=== PATIENT | male | born 1965 | race Caucasian/White ===

== ENCOUNTER → 2016-10-20 | Outpatient (CLI) | payer OTHER ==
[2016-10-20 12:01] LABS: Basophils # (A) 0.1 k/uL (0-0.2); Basophils % (A) 1 %; CH 31.9; CHCM 34.4; Eosinophils # (A) 0.2 k/uL (0-0.7); Eosinophils % (A) 3 %; HCT 46.1 % (39.0-53.0); HDW 2.43; HGB 14.8 gm/dL (13.0-17.5); Luc # (Auto) 0.21; Luc % (Auto) 3; Lymphocytes # (A) 1.9 k/uL (1.0-4.8); Lymphocytes % (A) 26 %; MCHC 32.1 g/dL (31.0-37.0); MCV 93.4 fL (80.0-100.0); Mean Platelet Volume 9.7; Monocytes # (A) 0.5 k/uL (0-1.0); Monocytes % (A) 6 %; Neutrophils # (A) 4.7 k/uL (1.3-7.7); Neutrophils % (A) 63 %; RBC 4.94 m/uL (4.30-5.90); RDW 12.7 % (11.5-15.5); WBC 7.6 k/uL (3.8-10.6); WBC (Perox) 7.87
[2016-10-20 12:36] LABS: ALT 67 U/L (21-72); AST 31 U/L (17-59); Alkaline Phosphatase 66 U/L (38-126); Anion Gap 11 mmol/L; Blood Urea Nitrogen 18 mg/dL (9-20); Calcium 9.5 mg/dL (8.4-10.2); Carbon Dioxide 26 mmol/L (22-30); Chloride 104 mmol/L (98-107); Cholesterol 214 mg/dL (<200); Glucose 128 mg/dL (74-99); HDL Cholesterol 45 mg/dL (40-60); Non-African American GFR(MDRD) >60 (>60 ml/min/1.73 sqM); Potassium 4.5 mmol/L (3.5-5.1); Sodium 141 mmol/L (137-145); Total Bilirubin 0.5 mg/dL (0.2-1.3); Total Protein 7.3 g/dL (6.3-8.2); Triglycerides 280 mg/dL (<150)
[2016-10-20 13:05] LABS: Prostate Specific Antigen 0.45 ng/mL (0.00-4.00)
== END | disposition home or self-care (01) ==
LOC: LABWHC1 10:21
PROVIDERS: ATTEND Family Medicine
DX: E78.2 Mixed hyperlipidemia (principal); E11.65 Type 2 diabetes mellitus with hyperglycemia; R35.0 Frequency of micturition; R53.83 Other fatigue
CPT/HCPCS: 36415; 80053; 80061; 84153; 85025

== ENCOUNTER → 2016-11-15 | Outpatient (CLI) | payer OTHER ==
--- NOTE | 2016-11-15 16:07 | XR ---
Lumbar spine HISTORY: Low back pain 3 views of the lumbar spine No comparisons Lumbar vertebral bodies show decreased bone mineralization. Alignment is maintained. There is multile tony spondylosis, vertebral body height is normal. Loss of disc height at L4-5, L5-S1. Sclerosis prese nt in the posterior elements. Vascular calcifications present within the abdominal aorta. Difficult t o exclude renal calcifications. Sclerosis in the posterior elements. IMPRESSION: Degenerative disc disease and facet arthropathy. Difficult to exclude nephrolithiasis.
== END | disposition home or self-care (01) ==
LOC: RADXRMAIN 15:28
PROVIDERS: ATTEND Emergency Medicine
DX: S39.012A Strain of muscle, fascia and tendon of lower back, initial encounter (principal); M51.36 Other intervertebral disc degeneration, lumbar region; M46.86 Other specified inflammatory spondylopathies, lumbar region
CPT/HCPCS: 72100

== ENCOUNTER → 2016-11-27 | Outpatient (CLI) | payer OTHER ==
--- NOTE | 2016-11-27 19:04 | PN ---
This 50-year-old male patient who was diagnosed having obstructive sleep apnea and patient is coming in for a compliancy check. The patient was found to have moderate to severe disease with an AHI of 18 worse during REM. Based on that, the patient was given CPAP at a pressure of 8 cm of water. On today's follow-up, the patient is feeling greater. He reports marked improvement in his sleep quality and is able to sleep without any major difficulties. He is waking up much more refreshed and alert during the day. His snoring is completely gone as he is using his CPAP at night. He is waking up refreshed. No major hypersomnia or sleepiness during the day. His average CPAP use 6 hours and 23 minutes. His CPAP use for more than 4 hours is 100%. He has leak factor is only at 0.2 L/min. His AHI while on treatment is down to 2.8 and the patient has no specific complaints. He has lost also 4 pounds. No other significant issues otherwise for now. His current vitals: BP is 150/88, pulse 101, respirations 16, temperature is 98.3, saturation is 95% on room air. [place] score 3. Weight is 232. GENERAL APPEARANCE: Calm, comfortable. HEENT: Short neck, crowding posterior pharynx. There is no goiter, neck mass. LUNGS: Clear to auscultation. HEART: Sounds are regular rate and rhythm. Normal S1, S2. ABDOMEN: Soft, nontender. No organomegaly. EXTREMITIES: No edema. No cyanosis, or clubbing. IMPRESSION: 1. Symptomatic obstructive sleep apnea, moderate in severity, AHI of 18, worse during REM, currently on CPAP pressure of 18 with excellent clinical response and compliance. 2. Diabetes mellitus. 3. Benign prostatic hypertrophy. 4. Hyperlipidemia. 5. Obesity. PLAN: 1. Encourage weight loss. 2. Continue CPAP therapy at same level of pressure. 3. Continue using a Simplus full face mask. 4. See me back in follow-up in a year or earlier if needed.
== END | disposition home or self-care (01) ==
LOC: SLEEP 15:24
PROVIDERS: ATTEND Internal Medicine Critical Care Medicine
DX: G47.33 Obstructive sleep apnea (adult) (pediatric) (principal); E66.9 Obesity, unspecified; Z99.89 Dependence on other enabling machines and devices

== ENCOUNTER → 2016-12-25 | Outpatient (CLI) | payer OTHER ==
--- NOTE | 2016-12-26 08:29 | MR ---
EXAMINATION TYPE: MR lumbar spine wo con DATE OF EXAM: 12/25/2016 9:26 PM COMPARISON: Plain film second of November 2016 HISTORY: low back pain x2 months TECHNIQUE: Multiplanar, multisequence images of the lumbar spine were acquired. L1-L2: Normal disc appearance without desiccation. No herniation, protrusion or disc bulging. No ca nal stenosis is present. Foramina are patent bilaterally. L2-L3: Normal disc appearance without desiccation. No herniation, protrusion or disc bulging. No ca nal stenosis is present. Foramina are patent bilaterally. L3-L4: Normal disc appearance without desiccation. No herniation, protrusion or disc bulging. No ca nal stenosis is present. Foramina are patent bilaterally. L4-L5: Facet arthropathy with hypertrophy of the ligamentum flavum causes some lateral recess encroac hment. No significant central stenosis or foraminal encroachment. Broad-based posterior disc bulge ca uses only slight anterior mass effect on the thecal sac. L5-S1: Loss of disc signal is compatible with disc desiccation. Posterior broad-based disc bulge caus es mild anterior mass effect on the thecal sac. Scoliotic curvature combines with circumferential ext ension of endplate disc complex to cause some right-sided foraminal encroachment greater than left. N o significant central stenosis. There is some facet arthropathy encroaching on the lateral recesses. Lumbar segments are intact. No paraspinal masses are identified. Conus medullaris has a normal appe arance. There is a scoliosis centered at the lower lumbar spine. IMPRESSION: Scoliosis, degenerative disc disease, facet arthropathy and foraminal encroachment as described.
== END ==
LOC: RADMRIMAIN 20:35
PROVIDERS: ATTEND Emergency Medicine
DX: S39.012D Strain of muscle, fascia and tendon of lower back, subsequent encounter (principal); M99.73 Connective tissue and disc stenosis of intervertebral foramina of lumbar region; M51.36 Other intervertebral disc degeneration, lumbar region; M46.86 Other specified inflammatory spondylopathies, lumbar region; M41.86 Other forms of scoliosis, lumbar region
CPT/HCPCS: 72148

== ENCOUNTER → 2017-02-25 | Outpatient (CLI) | payer OTHER ==
[2017-02-25 14:13] VITALS: BP 132/73; PULSE 102; RESP 16; TEMP 98.5
--- NOTE | 2017-02-25 14:35 | P.CONS ---
History of Present Illness - Reason for Consult Consult date: 02/25/17 - History of Present Illness This is the initial consultation visit for this 51 years old male, was complaining of severe low back pain October 2016, and intensity of the pain increased over a few weeks, he had physical therapy for a 2 weeks, and his pain improved significantly, but he continued to have severe low back pain when he walks, the pain is constant and increases with walking or any activity, he denies any motor or sensory deficit, he denies any fever or night sweats and no change in the bowel movement or urination, the pain radiated to the posterior aspect of his right leg, improved with leaning forward and increases with rotation of the torso, and hyperextension Past Medical History Past Medical History: Diabetes Mellitus, GERD/Reflux, Hyperlipidemia History of Any Multi-Drug Resistant Organisms: None Reported Past Surgical History: Heart Catheterization Past Anesthesia/Blood Transfusion Reactions: Family History of Problems w/ Anesthesia Additional Past Anesthesia/Blood Transfusion Reaction / Comm: mom had some problems coming out of anes. Past Psychological History: No Psychological Hx Reported Smoking Status: Current every day smoker Past Alcohol Use History: Occasional Past Drug Use History: None Reported - Past Family History Mother Family Medical History: Coronary Artery Disease (CAD) Father Family Medical History: Coronary Artery Disease (CAD) Medications and Allergies Home Medications Medication Instructions Recorded Confirmed Type Aspirin 325 mg PO DAILY 06/17/14 02/25/17 History Fenofibrate 160 mg PO DAILY 06/17/14 02/25/17 History Pioglitazone [Actos] 30 mg PO DAILY 06/17/14 02/25/17 History Multivitamin [Men's Multi-Vitamin] 1 tab PO DAILY 06/18/14 02/25/17 History Omeprazole [Omeprazole] 20 mg PO BID 06/18/14 02/25/17 History Atorvastatin [Lipitor] 40 mg PO DAILY 02/25/17 02/25/17 History Tamsulosin [Flomax] 1 tab PO DAILY 02/25/17 02/25/17 History sitaGLIPtin PHOS/metFORMIN HCL 1 tab PO BID 02/25/17 02/25/17 History [Janumet 50-1,000 mg Tablet] Allergies Allergy/AdvReac Type Severity Reaction Status Date / Time No Known Allergies Allergy Verified 02/25/17 13:57 Physical Exam Vitals: Vital Signs Temp Pulse Resp BP Pulse Ox 02/25/17 14:05 98.5 F 102 H 16 132/73 97 Intake and Output 02/24/17 02/25/17 02/25/17 22:59 06:59 14:59 Other: Weight 102.058 kg Patient Weight 02/26/17 06:59 Weight 102.058 kg Social history : not smoker , NO ETOH , NO Illegal drugs use . Review of Systems : 1- Constitutional : no chills , no fever , no night sweats , 2- Ears : no ear discharge , no change in hearing 3-Nose, Mouth ,Throat ; no bleeding gums, no sore throat , no epistaxis , 4-Cardiovascular : Denies chest pain, , no orthopnea , no palpitation 5-Respiratory : Denies cough , no dyspnea , no hemoptysis 6-Gastrointestinal :, no change in bowel habits , no coffee- ground emesis . 7-Genitourinary : No hematuria , no discharge , no incontinence, 8-Musculoskeletal : No gait dysfunction , report low back pain , 9- Neurological : no ataxia , no tremor , no sezure , 10-Psychatric , no suicidal ideation no hallucination 11- Endocrine : no cold intolerence , no polyuria , no polydypsia , 12-Hematologic : no easy bleeding , no easy brusing , 13-Allergic / immunology : no angioedema , no wheezing ,no allergic rhinitis 14-Integumentary : no brttle nails , no change hair / nails , no foot/leg ulcers . Physical Examinations : 1-Constitutional : Cooperative , not in acute distress . 2-HEENT : nech ; supple , no Lymphadenopathy , no Thyromegaly , :eyes , no icterus, no photophobia . ENT : , normal oropharynx , no Thrush 3- Respiratory : Chest clear to auscultations Bilaterally , no wheezing . 4- Cardiovascular : regular rate and rhythem , S1 , S2 , no S3 , no S4. 5- Gastrointestinal: abdomen soft no tenderness , no organomegally . 6- Genitourinary : Defferred . 7-Integumentary : No cellulitis , no ulcers , normal skin turgor , no cyanotic . 8- neurologic : Cranial nerve II to XII intact , no focal neurological deffecit 9-psychatric : alert , oriented X 3 , appropriate affect , intact judgment and insight . 10-Lymphatic : no Lymphadenopathy. 11- musculoskeltal: normal gait Lumber spine moter stegnth lower extremities ,thigh and legs 5/5 Right side , 5/5 Left side deep tendon reflexes : normal Knee Jerk , normal ankle Jerk positive lumber facet Loading Test Range of motion of the lumbar spine 60 , hyperextension 10 strait leg raising test negative bilaterally Fabere test negative bilaterally mild tenderness over the Sacroiliac joint on the R and L sides Results Comments: MRI of the lumbar spine= multilevel lumbar degenerative disc disease and lumbar facet arthropathy at L4 5 and L5-S1 Assessment and Plan Plan: Assessment and plan= -chronic low back pain secondary to lumbar degenerative disc disease , lumbar spondylosis with lumbar facet arthropathy without myelopathathy Patient can benefit from Motrin 800 mg every 8 hours when necessary for pain, and Neurontin 100 mg every 8 hours, Will schedule patient to have diagnostic medial branch block lumbar area at L3-4/L4 5/L5-S1. b If he had a good result ,the we will do radiofrequency ablation of the medial branch Time with Patient: Greater than 30
== END ==
LOC: PNWHC3 13:08
PROVIDERS: ATTEND Specialist
DX: M51.36 Other intervertebral disc degeneration, lumbar region (principal); M47.816 Spondylosis without myelopathy or radiculopathy, lumbar region; M46.86 Other specified inflammatory spondylopathies, lumbar region; E11.9 Type 2 diabetes mellitus without complications; K21.9 Gastro-esophageal reflux disease without esophagitis; F17.200 Nicotine dependence, unspecified, uncomplicated; E78.5 Hyperlipidemia, unspecified; Z79.82 Long term (current) use of aspirin; Z79.84 Long term (current) use of oral hypoglycemic drugs; Z79.899 Other long term (current) drug therapy
CPT/HCPCS: 99211

== ENCOUNTER → 2018-08-05 | Outpatient (CLI) | payer OTHER ==
--- NOTE | 2018-08-05 19:37 | PN ---
PROGRESS NOTE Santos is 52. He is coming in for a compliancy check regarding his DAX treatment. The patient was diagnosed having DAX with an AHI of 18, worse during REM sleep. Since his last evaluation last year the patient has lost weight. He used to weight 232 and currently he is down to 226. He is currently on CPAP pressure of 8 cm of water. He is using a Simplus full-face mask, medium size. He is still benefitting from the treatment. He is waking up alert and refreshed during the day. No new-onset medical problems or comorbidities. No chest pain. No angina. No palpitation. No heartburn. No cardiac arrhythmias. Based on the compliance data, the patient has been utilizing his CPAP throughout the night without any interruption. His CPAP use for more than 4 hours is above 90%. Average CPAP is around 8.4 hours per night. Leak factor is 29 L/minute. AHI is down to 1.1 while on treatment. His treatment continues to be successful. REVIEW OF SYSTEMS: Twelve-point review of systems was done. It is positive for weight loss. No headaches. No nausea. No vomiting. No aerophagia. No abdominal distention. No chest pain. No restlessness in the lower extremities. Diabetes is under good control. No significant symptoms of nocturia at this point in time. No chronic pain. No psychiatric disorder. BP is 153/71, pulse 96, respirations 16, temperature 98.0, saturation 94% on room air. Weight 226. Height is 5 feet 6 inches. GENERAL APPEARANCE: Calm, comfortable. Head is atraumatic, normocephalic. NECK: Supple. There is no JVD. No goiter or neck masses. Crowding of posterior pharynx. Mallampati class IV. LUNGS: Clear to auscultation. HEART: Heart sounds are regular rate and rhythm. Normal S1, S2. No S3. No murmurs. ABDOMEN: Soft, nontender. No organomegaly. EXTREMITIES: No edema. No cyanosis or clubbing. IMPRESSION: 1. Symptomatic obstructive sleep apnea with apnea/hypopnea index of 19. Continues to be on CPAP pressure of 8 cm of water with successful treatment. 2. Obesity with a body mass index of 36.4, with interval 6-pound weight loss. 3. Hypersomnia, improved. 4. Diabetes. 5. Benign prostatic hypertrophy. 6. Hyperlipidemia. 7. History of periodic limb movements. PLAN: 1. Continue CPAP therapy at the same level of pressure of 8 cm of water. 2. Renew the patient's CPAP supplies. 3. Encourage further weight loss. 4. See me back in a year's time, earlier if needed. BOO / ANGI: [id number] /
== END ==
LOC: SLEEP 15:34
PROVIDERS: ATTEND Internal Medicine Critical Care Medicine
DX: G47.33 Obstructive sleep apnea (adult) (pediatric) (principal); E66.9 Obesity, unspecified; E11.9 Type 2 diabetes mellitus without complications; N40.0 Benign prostatic hyperplasia without lower urinary tract symptoms; E78.5 Hyperlipidemia, unspecified; Z99.89 Dependence on other enabling machines and devices; Z68.36 Body mass index [BMI] 36.0-36.9, adult

== ENCOUNTER → 2018-12-29 | Outpatient (CLI) | payer OTHER ==
[2018-12-29 12:28] LABS: Basophils % (A) 0 %; Eosinophils # (A) 0.2 k/uL (0-0.7); Eosinophils % (A) 2 %; HCT 43.9 % (39.0-53.0); HGB 14.7 gm/dL (13.0-17.5); Lymphocytes # (A) 2.1 k/uL (1.0-4.8); Lymphocytes % (A) 29 %; MCH 30.9 pg (25.0-35.0); MCHC 33.5 g/dL (31.0-37.0); MCV 92.2 fL (80.0-100.0); Mean Platelet Volume 9.8; Monocytes # (A) 0.5 k/uL (0-1.0); Monocytes % (A) 7 %; Neutrophils # (A) 4.3 k/uL (1.3-7.7); Neutrophils % (A) 59 %; Platelet Count 190 k/uL (150-450); RBC 4.76 m/uL (4.30-5.90); RDW 13.9 % (11.5-15.5); WBC 7.2 k/uL (3.8-10.6)
[2018-12-29 12:42] LABS: ALT 56 U/L (21-72); AST 34 U/L (17-59); Albumin 4.5 g/dL (3.5-5.0); Alkaline Phosphatase 62 U/L (38-126); Anion Gap 6 mmol/L; Blood Urea Nitrogen 22 mg/dL (9-20); Calcium 10.5 mg/dL (8.4-10.2); Carbon Dioxide 28 mmol/L (22-30); Chloride 103 mmol/L (98-107); Glucose 157 mg/dL (74-99); Potassium 4.5 mmol/L (3.5-5.1); Sodium 137 mmol/L (137-145); Total Bilirubin 0.4 mg/dL (0.2-1.3)
--- NOTE | 2018-12-29 16:06 | US ---
EXAMINATION TYPE: US scrotum with doppler. TECHNIQUE: Grayscale and color Doppler Duplex imaging performed of the scrotum. DATE OF EXAM: 12/29/2018 COMPARISON: NONE CLINICAL HISTORY: 53-year-old male N50.811 RT TESTICULAR PAIN. Pain right testicle for 1 day FINDINGS: EXAM MEASUREMENTS: TESTICLES: Right Testicle: 4.7 x 2.4 x 4.2 cm (24.7 mL) Left Testicle: 3.8 x 2.7 x 3.7 cm (19.8 mL) Doppler performed to assess for testicular vascularity; good bilateral color flow and waveforms are s een. There is no evidence of testicular torsion. EPIDIDYMIS HEAD: Right Epididymis: 1.8 cm with multiple cysts measuring up to 1 cm. Left Epididymis: 1.5 cm with multiple cysts measuring up to 1.2 cm. No varicocele is identified. Presence of hydroceles: yes, small to moderate on the right is small and the left. IMPRESSION: 1. No sonographic evidence for testicular torsion or epididymoorchitis. 2. Bilateral epididymal cysts measuring up to 1.2 cm. 3. Small to moderate right and small left hydroceles.
== END ==
LOC: RADUSWWP 11:09
PROVIDERS: ATTEND Family Medicine
DX: N50.3 Cyst of epididymis (principal); N43.3 Hydrocele, unspecified; N50.811 Right testicular pain; R19.4 Change in bowel habit
CPT/HCPCS: 76870; 80053; 84153; 85025; 93975

== ENCOUNTER 2019-08-27 19:45 | Observation (INO) | payer OTHER ==
[2019-08-27] MEDS ORDERED: ACETAMINOPHEN TAB 500 MG TAB PO STA (20:11)
[2019-08-27] MEDS ORDERED: IBUPROFEN 600 MG TAB PO STA (20:11)
[2019-08-27] MEDS ORDERED: ASPIRIN 81 MG PO STA (20:13)
[2019-08-27] MEDS ORDERED: NITROGLYCERIN OINT 1 INCH/GM PACKET TOPICAL STA (20:14)
--- NOTE | 2019-08-27 20:19 | ED ---
General Adult HPI - General Source: patient, RN notes reviewed, old records reviewed Mode of arrival: ambulatory <Michael Marcial - Last Filed: 08/27/19 21:04> <Margarito Petit - Last Filed: 08/27/19 22:44> - General Chief complaint: Chest Pain Stated complaint: chest pain Time Seen by Provider: 08/27/19 19:50 - History of Present Illness Initial comments: This is a 53-year-old male who presents emergency Department complaining that last night he had chest pain for most of the night he was sweaty and mildly short of breath per patient denied any radiation of the pain. Patient states he went to work today because the pain had subsided. When he came home he took a nap when he woke up he was having severe chest pain again. Patient states again there was no radiation of the pain. Patient stated he was mildly short of breath but again sweaty. Patient denies any nausea vomiting. Patient denies any fever chills or cough. Patient denies any abdominal pain. Patient denies any rashes. Patient denies any dysuria hematuria urinary frequency. Patient states she did not get a flu shot this year. (Michael Marcial) - Related Data Home Medications Medication Instructions Recorded Confirmed Aspirin 325 mg PO DAILY 06/17/14 02/25/17 Fenofibrate 160 mg PO DAILY 06/17/14 02/25/17 Pioglitazone [Actos] 30 mg PO DAILY 06/17/14 02/25/17 Multivitamin [Men's Multi-Vitamin] 1 tab PO DAILY 06/18/14 02/25/17 Omeprazole 20 mg PO BID 06/18/14 02/25/17 Atorvastatin [Lipitor] 40 mg PO DAILY 02/25/17 02/25/17 Tamsulosin [Flomax] 1 tab PO DAILY 02/25/17 02/25/17 sitaGLIPtin PHOS/metFORMIN HCL 1 tab PO BID 02/25/17 02/25/17 [Janumet 50-1,000 mg Tablet] Allergies Allergy/AdvReac Type Severity Reaction Status Date / Time No Known Allergies Allergy Verified 08/27/19 19:52 Review of Systems ROS Other: All systems not noted in ROS Statement are negative. <Michael Marcial - Last Filed: 08/27/19 21:04> ROS Other: All systems not noted in ROS Statement are negative. <Margarito Petit - Last Filed: 08/27/19 22:44> ROS Statement: Those systems with pertinent positive or pertinent negative responses have been documented in the HPI. Past Medical History Past Medical History: Diabetes Mellitus, GERD/Reflux, Hyperlipidemia History of Any Multi-Drug Resistant Organisms: None Reported Past Surgical History: Heart Catheterization Past Anesthesia/Blood Transfusion Reactions: Family History of Problems w/ Anesthesia Additional Past Anesthesia/Blood Transfusion Reaction / Comment(s): mom had some problems coming out of anes. Past Psychological History: No Psychological Hx Reported Smoking Status: Former smoker Past Drug Use History: None Reported - Past Family History Mother Family Medical History: Coronary Artery Disease (CAD) Father Family Medical History: Coronary Artery Disease (CAD) <Michael Marcial - Last Filed: 08/27/19 21:04> General Exam <Michael Marcial - Last Filed: 08/27/19 21:04> - General Exam Comments Initial Comments: GENERAL: Patient is well-developed and well-nourished. Patient is nontoxic and well- hydrated and is in mild distress. I took the patient's temperature it was 101.7 ENT: Neck is soft and supple. No significant lymphadenopathy is noted. Oropharynx is clear. Moist mucous membranes. Neck has full range of motion without eliciting any pain. EYES: The sclera were anicteric and conjunctiva were pink and moist. Extraocular movements were intact and pupils were equal round and reactive to light. Eyelids were unremarkable. PULMONARY: Unlabored respirations. Good breath sounds bilaterally. No audible rales rhonchi or wheezing was noted. CARDIOVASCULAR: There is a regular rate and rhythm without any murmurs gallops or rubs. ABDOMEN: Soft and nontender with normal bowel sounds. SKIN: Skin is clear with no lesions or rashes and otherwise unremarkable. NEUROLOGIC: Patient is alert and oriented x3. Cranial nerves II through XII are grossly intact. Motor and sensory are also intact. Normal speech, volume and content. Symmetrical smile. MUSCULOSKELETAL: Normal extremities with adequate strength and full range of motion. LYMPHATICS: No significant lymphadenopathy is noted PSYCHIATRIC: Normal psychiatric evaluation. (Michael Marcial) Course Vital Signs 08/27/19 08/27/19 08/27/19 19:47 20:02 20:10 Temperature 99.6 F 101.7 F H Pulse Rate 119 H Pulse Rate [ 116 H [employer] ] Respiratory 17 Rate Blood Pressure 151/52 O2 Sat by Pulse 97 Oximetry 08/27/19 08/27/19 21:23 22:41 Temperature 100.6 F H 100 F H Pulse Rate 112 H 112 H Pulse Rate [ [employer] ] Respiratory 18 18 Rate Blood Pressure 127/70 128/82 O2 Sat by Pulse 95 97 Oximetry Medical Decision Making - Lab Data Result diagrams: 08/27/19 20:22 08/27/19 20:22 <Michael Marcial - Last Filed: 08/27/19 21:04> - Lab Data Result diagrams: 08/27/19 20:22 08/27/19 20:22 <Margarito Petit - Last Filed: 08/27/19 22:44> - Medical Decision Making EKG shows sinus tachycardia at 116 bpm NJ interval 146 dresses 88 QT interval 3:30 QTC is 458 per patient's EKG shows occasional PVCs but no ST segment elevation or depression. Dr. Galindo taking over the care of this patient at 9 PM (Michael Marcial) - Lab Data Lab Results 08/27/19 08/27/19 08/27/19 Range/Units 20:00 20:00 20:22 WBC 9.6 (3.8-10.6) k/uL RBC 4.27 L (4.30-5.90) m/uL Hgb 13.2 (13.0-17.5) gm/dL Hct 38.1 L (39.0-53.0) % MCV 89.3 (80.0-100.0) fL MCH 31.0 (25.0-35.0) pg MCHC 34.7 (31.0-37.0) g/dL RDW 12.9 (11.5-15.5) % Plt Count 182 (150-450) k/uL Neutrophils % 79 % Lymphocytes % 10 % Monocytes % 7 % Eosinophils % 1 % Basophils % 0 % Neutrophils # 7.6 (1.3-7.7) k/uL Lymphocytes # 0.9 L (1.0-4.8) k/uL Monocytes # 0.7 (0-1.0) k/uL Eosinophils # 0.1 (0-0.7) k/uL Basophils # 0.0 (0-0.2) k/uL PT (9.0-12.0) sec INR (<1.2) APTT (22.0-30.0) sec Sodium (137-145) mmol/L Potassium (3.5-5.1) mmol/L Chloride (98-107) mmol/L Carbon Dioxide (22-30) mmol/L Anion Gap mmol/L BUN (9-20) mg/dL Creatinine (0.66-1.25) mg/dL Est GFR (CKD-EPI)AfAm (>60 ml/min/1.73 sqM) Est GFR (CKD-EPI)NonAf (>60 ml/min/1.73 sqM) Glucose (74-99) mg/dL Plasma Lactic Acid Daniel (0.7-2.0) mmol/L Calcium (8.4-10.2) mg/dL Total Bilirubin (0.2-1.3) mg/dL AST (17-59) U/L ALT (4-49) U/L Alkaline Phosphatase (38-126) U/L Troponin I (0.000-0.034) ng/mL Total Protein (6.3-8.2) g/dL Albumin (3.5-5.0) g/dL Urine Color Light Yellow Urine Appearance Clear (Clear) Urine pH 6.0 (5.0-8.0) Ur Specific [place] 1.012 (1.001-1.035) Urine Protein 1+ H (Negative) Urine Glucose (UA) 4+ H (Negative) Urine Ketones Negative (Negative) Urine Blood Negative (Negative) Urine Nitrite Negative (Negative) Urine Bilirubin Negative (Negative) Urine Urobilinogen <2.0 (<2.0) mg/dL Ur Leukocyte Esterase Negative (Negative) Urine RBC <1 (0-5) /hpf Urine WBC <1 (0-5) /hpf Urine Bacteria Rare H (None) /hpf Influenza Type A RNA Not Detected (Not Detectd) Influenza Type B (PCR) Not Detected (Not Detectd) 08/27/19 08/27/19 08/27/19 Range/Units 20:22 20:22 20:22 WBC (3.8-10.6) k/uL RBC (4.30-5.90) m/uL Hgb (13.0-17.5) gm/dL Hct (39.0-53.0) % MCV (80.0-100.0) fL MCH (25.0-35.0) pg MCHC (31.0-37.0) g/dL RDW (11.5-15.5) % Plt Count (150-450) k/uL Neutrophils % % Lymphocytes % % Monocytes % % Eosinophils % % Basophils % % Neutrophils # (1.3-7.7) k/uL Lymphocytes # (1.0-4.8) k/uL Monocytes # (0-1.0) k/uL Eosinophils # (0-0.7) k/uL Basophils # (0-0.2) k/uL PT 9.7 (9.0-12.0) sec INR 0.9 (<1.2) APTT 25.2 (22.0-30.0) sec Sodium 133 L (137-145) mmol/L Potassium 3.9 (3.5-5.1) mmol/L Chloride 97 L (98-107) mmol/L Carbon Dioxide 24 (22-30) mmol/L Anion Gap 12 mmol/L BUN 13 (9-20) mg/dL Creatinine 0.91 (0.66-1.25) mg/dL Est GFR (CKD-EPI)AfAm >90 (>60 ml/min/1.73 sqM) Est GFR (CKD-EPI)NonAf >90 (>60 ml/min/1.73 sqM) Glucose 284 H (74-99) mg/dL Plasma Lactic Acid Daniel 1.2 (0.7-2.0) mmol/L Calcium 9.6 (8.4-10.2) mg/dL Total Bilirubin 0.6 (0.2-1.3) mg/dL AST 22 (17-59) U/L ALT 32 (4-49) U/L Alkaline Phosphatase 96 (38-126) U/L Troponin I (0.000-0.034) ng/mL Total Protein 7.1 (6.3-8.2) g/dL Albumin 4.2 (3.5-5.0) g/dL Urine Color Urine Appearance (Clear) Urine pH (5.0-8.0) Ur Specific [place] (1.001-1.035) Urine Protein (Negative) Urine Glucose (UA) (Negative) Urine Ketones (Negative) Urine Blood (Negative) Urine Nitrite (Negative) Urine Bilirubin (Negative) Urine Urobilinogen (<2.0) mg/dL Ur Leukocyte Esterase (Negative) Urine RBC (0-5) /hpf Urine WBC (0-5) /hpf Urine Bacteria (None) /hpf Influenza Type A RNA (Not Detectd) Influenza Type B (PCR) (Not Detectd) 08/27/19 Range/Units 20:22 WBC (3.8-10.6) k/uL RBC (4.30-5.90) m/uL Hgb (13.0-17.5) gm/dL Hct (39.0-53.0) % MCV (80.0-100.0) fL MCH (25.0-35.0) pg MCHC (31.0-37.0) g/dL RDW (11.5-15.5) % Plt Count (150-450) k/uL Neutrophils % % Lymphocytes % % Monocytes % % Eosinophils % % Basophils % % Neutrophils # (1.3-7.7) k/uL Lymphocytes # (1.0-4.8) k/uL Monocytes # (0-1.0) k/uL Eosinophils # (0-0.7) k/uL Basophils # (0-0.2) k/uL PT (9.0-12.0) sec INR (<1.2) APTT (22.0-30.0) sec Sodium (137-145) mmol/L Potassium (3.5-5.1) mmol/L Chloride (98-107) mmol/L Carbon Dioxide (22-30) mmol/L Anion Gap mmol/L BUN (9-20) mg/dL Creatinine (0.66-1.25) mg/dL Est GFR (CKD-EPI)AfAm (>60 ml/min/1.73 sqM) Est GFR (CKD-EPI)NonAf (>60 ml/min/1.73 sqM) Glucose (74-99) mg/dL Plasma Lactic Acid Daniel (0.7-2.0) mmol/L Calcium (8.4-10.2) mg/dL Total Bilirubin (0.2-1.3) mg/dL AST (17-59) U/L ALT (4-49) U/L Alkaline Phosphatase (38-126) U/L Troponin I <0.012 (0.000-0.034) ng/mL Total Protein (6.3-8.2) g/dL Albumin (3.5-5.0) g/dL Urine Color Urine Appearance (Clear) Urine pH (5.0-8.0) Ur Specific [place] (1.001-1.035) Urine Protein (Negative) Urine Glucose (UA) (Negative) Urine Ketones (Negative) Urine Blood (Negative) Urine Nitrite (Negative) Urine Bilirubin (Negative) Urine Urobilinogen (<2.0) mg/dL Ur Leukocyte Esterase (Negative) Urine RBC (0-5) /hpf Urine WBC (0-5) /hpf Urine Bacteria (None) /hpf Influenza Type A RNA (Not Detectd) Influenza Type B (PCR) (Not Detectd) Disposition <Michael Marcial - Last Filed: 08/27/19 21:04> <Margarito Petit - Last Filed: 08/27/19 22:44> Clinical Impression: Chest pain, Pneumonia Disposition: ADMITTED IP TO THIS HOSP Condition: Fair Instructions (If sedation given, give patient instructions): Chest Pain (ED) Referrals: Mark Pena MD [Primary Care Provider] - 1-2 days
[2019-08-27] MEDS: SODIUM CHLORIDE 0.9% 500 ML 500 ML IV SCH (20:23)
[2019-08-27 20:48] LABS: Basophils % (A) 0 %; Eosinophils # (A) 0.1 k/uL (0-0.7); Eosinophils % (A) 1 %; HCT 38.1 % (39.0-53.0); HGB 13.2 gm/dL (13.0-17.5); Lymphocytes # (A) 0.9 k/uL (1.0-4.8); Lymphocytes % (A) 10 %; MCHC 34.7 g/dL (31.0-37.0); MCV 89.3 fL (80.0-100.0); Mean Platelet Volume 10.8; Monocytes # (A) 0.7 k/uL (0-1.0); Monocytes % (A) 7 %; Neutrophils # (A) 7.6 k/uL (1.3-7.7); Neutrophils % (A) 79 %; Platelet Count 182 k/uL (150-450); RBC 4.27 m/uL (4.30-5.90); RDW 12.9 % (11.5-15.5); WBC 9.6 k/uL (3.8-10.6)
[2019-08-27 20:52] LABS: Appearance,Urine Clear (Clear); Bacteria,Urine Rare /hpf; Bilirubin,Urine Negative (Negative); Blood,Urine Negative (Negative); Color,Urine Light Yellow; Glucose,Urine (UA) 4+ (Negative); Ketones,Urine Negative (Negative); Leukocyte Esterase,Urine Negative (Negative); Nitrite,Urine Negative (Negative); Protein,Urine 1+ (Negative); RBC,Urine <1 /hpf (0-5); Specific Gravity,Urine 1.012 (1.001-1.035); Urobilinogen,Urine <2.0 mg/dL (<2.0); WBC,Urine <1 /hpf (0-5)
[2019-08-27 20:54] LABS: INR 0.9 (<1.2); Partial Thromboplastin Time 25.2 sec (22.0-30.0); Prothrombin Time 9.7 sec (9.0-12.0)
[2019-08-27 21:01] LABS: ALT 32 U/L (4-49); AST 22 U/L (17-59); African American GFR (CKD) >90 (>60 ml/min/1.73 sqM); Albumin 4.2 g/dL (3.5-5.0); Alkaline Phosphatase 96 U/L (38-126); Anion Gap 12 mmol/L; Blood Urea Nitrogen 13 mg/dL (9-20); Calcium 9.6 mg/dL (8.4-10.2); Carbon Dioxide 24 mmol/L (22-30); Chloride 97 mmol/L (98-107); Glucose 284 mg/dL (74-99); Non-African American GFR(CKD) >90 (>60 ml/min/1.73 sqM); Potassium 3.9 mmol/L (3.5-5.1); Sodium 133 mmol/L (137-145); Total Bilirubin 0.6 mg/dL (0.2-1.3); Total Protein 7.1 g/dL (6.3-8.2)
[2019-08-27 21:24] VITALS: RESP 18
--- NOTE | 2019-08-27 21:37 | XR ---
EXAMINATION TYPE: XR chest 2V DATE OF EXAM: 08/27/2019 COMPARISON: 09/04/2011 HISTORY: Cough TECHNIQUE: 2 views FINDINGS: There is some airspace infiltrate in the lateral right lower lobe in the lateral basal segm ent. The other lung parnell are clear. Heart and mediastinum are normal. There is no pleural effusion. Bony thorax is intact. IMPRESSION: Right lower lobe pneumonia. Normal heart.
[2019-08-27] MEDS ORDERED: AZITHROMYCIN 500 MG TAB PO STA (21:50)
[2019-08-27] MEDS ORDERED: ALBUTEROL NEBULIZED 2.5 MG/3 ML INHALATION PRN (22:28)
[2019-08-27] MEDS ORDERED: PNEUMONIA PROTOCOL UTILIZED 1 EACH MISC PO PRN (22:28)
[2019-08-27] MEDS: SODIUM CHLORIDE 0.9% 1,000 ML IV SCH (22:40)
[2019-08-27] MEDS: HEPARIN SODIUM,PORCINE 5,000 UNIT/ML 1 ML VIAL SQ SCH (23:45)
[2019-08-28 07:04] LABS: Glucose,Whole Blood 230 mg/dL (75-99)
[2019-08-28] MEDS: IPRATROPIUM-ALBUTEROL 3 ML NEB INHALATION SCH ×3 (07:33→15:09)
[2019-08-28] MEDS: SODIUM CHLORIDE 0.9% 1,000 ML IV SCH (08:05)
[2019-08-28] MEDS: HEPARIN SODIUM,PORCINE 5,000 UNIT/ML 1 ML VIAL SQ SCH ×2 (08:06→15:58)
[2019-08-28] MEDS: ASPIRIN 325 MG TAB PO SCH ×2 (08:06→08:18)
[2019-08-28] MEDS: LINAGLIPTIN 5 MG TABLET PO SCH ×2 (08:10→08:20)
--- NOTE | 2019-08-28 08:15 | XR ---
EXAMINATION TYPE: XR chest 2V DATE OF EXAM: 08/28/2019 COMPARISON: 08/27/2019 INDICATION: Pneumonia TECHNIQUE: Frontal and lateral views of the chest are obtained. FINDINGS: The heart size is normal. The pulmonary vasculature is normal. There is a right lower lobe infiltrate which is increasing in density. Findings can be compatible wit h pneumonia in the proper clinical setting.. IMPRESSION: 1. Worsening right lower lobe infiltrate. Continued follow-up for pneumonia is recommended.
[2019-08-28] MEDS ORDERED: IBUPROFEN 600 MG TAB PO PRN (08:29)
[2019-08-28] MEDS ORDERED: ATORVASTATIN 40 MG TAB PO SCH (09:00)
[2019-08-28] MEDS ORDERED: PANTOPRAZOLE 40 MG TABLET PO SCH (09:00)
[2019-08-28] MEDS ORDERED: TAMSULOSIN 0.4 MG CAP.ER.24H PO SCH (09:00)
[2019-08-28] MEDS ORDERED: MULTIVITAMINS, THERA 1 EACH TAB PO SCH (09:00)
[2019-08-28] MEDS ORDERED: FENOFIBRATE 160 MG TAB PO SCH (09:00)
[2019-08-28] MEDS ORDERED: PIOGLITAZONE 30 MG TAB PO SCH (09:00)
[2019-08-28] MEDS ORDERED: AZITHROMYCIN 500 MG TAB PO SCH (09:00)
[2019-08-28] MEDS ORDERED: metFORMIN 500 MG TAB PO SCH (09:00)
[2019-08-28 09:47] LABS: Basophils % (A) 0 %; Eosinophils % (A) 0 %; HGB 12.2 gm/dL (13.0-17.5); Lymphocytes # (A) 0.6 k/uL (1.0-4.8); Lymphocytes % (A) 7 %; Mean Platelet Volume 9.7; Monocytes # (A) 0.5 k/uL (0-1.0); Monocytes % (A) 6 %; Neutrophils # (A) 6.9 k/uL (1.3-7.7); Neutrophils % (A) 83 %; Platelet Count 159 k/uL (150-450); RBC 4.06 m/uL (4.30-5.90); RDW 12.9 % (11.5-15.5); WBC 8.3 k/uL (3.8-10.6)
[2019-08-28 09:54] LABS: African American GFR (CKD) >90 (>60 ml/min/1.73 sqM); Anion Gap 15 mmol/L; Blood Urea Nitrogen 14 mg/dL (9-20); Calcium 9.2 mg/dL (8.4-10.2); Carbon Dioxide 19 mmol/L (22-30); Chloride 100 mmol/L (98-107); Glucose 265 mg/dL (74-99); Non-African American GFR(CKD) >90 (>60 ml/min/1.73 sqM); Sodium 134 mmol/L (137-145)
[2019-08-28 11:02] LABS: Glucose,Whole Blood 227 mg/dL (75-99)
[2019-08-28 11:35] VITALS: BP 146/79; PULSE 107; TEMP 98.6
[2019-08-28] MEDS ORDERED: INSULIN ASPART (NovoLOG) 100 UNIT/ML VIAL SQ SCH (12:30)
--- NOTE | 2019-08-28 13:56 | P.HPIM ---
History of Present Illness H&P Date: 08/28/19 Chief Complaint: chest pain this is a pleasant 53-year-old white male well-known to the practice.he has type 2 diabetes. He started experiencing chest pain before coming to the emergency room. He was sweaty and mildly short of breath as well. He indicates that he felt better with work. He came home to [facility] and was having severe stabbing chest pain midsternal. The pain is not radiating. He again felt short of breath and sweaty. Patient emergency room had troponins negative. Chest x-ray findings of pneumonia. This a.m. he currently says chest pains much better. He is not short of breath. He does not have any nausea or vomiting. He has minimal cough Review of Systems All systems: negative Past Medical History Past Medical History: Diabetes Mellitus, GERD/Reflux, Hyperlipidemia Additional Past Medical History / Comment(s): cpap at night History of Any Multi-Drug Resistant Organisms: None Reported Past Surgical History: Heart Catheterization Past Anesthesia/Blood Transfusion Reactions: Family History of Problems w/ Anesthesia Additional Past Anesthesia/Blood Transfusion Reaction / Comment(s): mom had some problems coming out of anes. Past Psychological History: No Psychological Hx Reported Smoking Status: Former smoker Past Alcohol Use History: Occasional Past Drug Use History: None Reported - Past Family History Mother Family Medical History: Coronary Artery Disease (CAD) Father Family Medical History: Coronary Artery Disease (CAD) Medications and Allergies Home Medications Medication Instructions Recorded Confirmed Type Fenofibrate 160 mg PO HS 06/17/14 08/27/19 History Pioglitazone [Actos] 30 mg PO DAILY 06/17/14 08/27/19 History Multivitamin [Men's Multi-Vitamin] 1 tab PO DAILY 06/18/14 08/27/19 History Omeprazole 20 mg PO BID 06/18/14 08/27/19 History Atorvastatin [Lipitor] 40 mg PO DAILY 02/25/17 08/27/19 History Tamsulosin [Flomax] 0.8 mg PO HS 02/25/17 08/27/19 History sitaGLIPtin PHOS/metFORMIN HCL 1 tab PO BID 02/25/17 08/27/19 History [Janumet 50-1,000 mg Tablet] Albuterol Inhaler [Ventolin Hfa 2 puff INHALATION RT-Q6H PRN #1 08/28/19 Rx Inhaler] inhaler Cefuroxime Axetil [Ceftin] 500 mg PO BID #10 tab 08/28/19 Rx predniSONE 10 mg PO DIRECTED #30 tab 08/28/19 Rx Allergies Allergy/AdvReac Type Severity Reaction Status Date / Time No Known Allergies Allergy Verified 08/27/19 22:49 Physical Exam Vitals: Vital Signs Temp Pulse Pulse Pulse Resp BP BP 08/28/19 11:12 58 L 08/28/19 11:05 98.6 F 107 H 18 146/79 08/28/19 11:00 58 L 08/28/19 07:36 60 08/28/19 07:25 60 08/28/19 04:54 98.5 F 114 H 18 150/78 08/27/19 23:55 98.5 F 51 L 18 123/64 08/27/19 22:41 100 F H 112 H 18 128/82 08/27/19 22:28 08/27/19 21:23 100.6 F H 112 H 18 127/70 08/27/19 20:10 101.7 F H 08/27/19 20:02 116 H 08/27/19 19:47 99.6 F 119 H 17 151/52 Pulse Ox 08/28/19 11:12 08/28/19 11:05 94 L 08/28/19 11:00 08/28/19 07:36 08/28/19 07:25 08/28/19 04:54 94 L 08/27/19 23:55 95 08/27/19 22:41 97 08/27/19 22:28 95 08/27/19 21:23 95 08/27/19 20:10 08/27/19 20:02 08/27/19 19:47 97 Intake and Output 08/27/19 08/28/19 08/28/19 22:59 06:59 14:59 Other: Voiding Method Toilet Toilet # Voids 1 Weight 105.6 kg 105.6 kg GENERAL: Well-appearing, well-nourished and in no acute distress. HEAD: Atraumatic, normocephalic. EYES: Pupils equal round and reactive to light, extraocular movements intact, sclera anicteric, conjunctiva are normal. ENT:nares patent, oropharynx clear without exudates. Moist mucous membranes. NECK: Normal range of motion, supple without lymphadenopathy or JVD, no thyromegaly LUNGS: Breath sounds slightly coarse to auscultation bilaterally and equal. No wheezes rales, questionable rhonchi to the right base. HEART: Regular rate and rhythm without murmurs, rubs or gallops.S1S2 Normal ABDOMEN: Soft, nontender, normoactive bowel sounds. No guarding, no rebound. No masses appreciated. EXTREMITIES: Normal range of motion, no pitting or edema. No clubbing or cyanosis. NEUROLOGICAL: Cranial nerves II through XII grossly intact. Normal speech, normal gait. PSYCH: Normal mood, normal affect. SKIN: Warm, Dry, normal turgor, no rashes or lesions noted. Results CBC & Chem 7: 08/28/19 09:08/28/19 09:17 Labs: Abnormal Lab Results - Last 24 Hours (Table) 08/27/19 08/27/19 08/27/19 Range/Units 20:00 20:22 20:22 RBC 4.27 L (4.30-5.90) m/uL Hgb (13.0-17.5) gm/dL Hct 38.1 L (39.0-53.0) % Lymphocytes # 0.9 L (1.0-4.8) k/uL Sodium 133 L (137-145) mmol/L Chloride 97 L (98-107) mmol/L Carbon Dioxide (22-30) mmol/L Glucose 284 H (74-99) mg/dL POC Glucose (mg/dL) (75-99) mg/dL Urine Protein 1+ H (Negative) Urine Glucose (UA) 4+ H (Negative) Urine Bacteria Rare H (None) /hpf 08/28/19 08/28/19 08/28/19 Range/Units 07:02 09:17 09:17 RBC 4.06 L (4.30-5.90) m/uL Hgb 12.2 L (13.0-17.5) gm/dL Hct 37.0 L (39.0-53.0) % Lymphocytes # 0.6 L (1.0-4.8) k/uL Sodium 134 L (137-145) mmol/L Chloride (98-107) mmol/L Carbon Dioxide 19 L (22-30) mmol/L Glucose 265 H (74-99) mg/dL POC Glucose (mg/dL) 230 H (75-99) mg/dL Urine Protein (Negative) Urine Glucose (UA) (Negative) Urine Bacteria (None) /hpf 08/28/19 Range/Units 11:01 RBC (4.30-5.90) m/uL Hgb (13.0-17.5) gm/dL Hct (39.0-53.0) % Lymphocytes # (1.0-4.8) k/uL Sodium (137-145) mmol/L Chloride (98-107) mmol/L Carbon Dioxide (22-30) mmol/L Glucose (74-99) mg/dL POC Glucose (mg/dL) 227 H (75-99) mg/dL Urine Protein (Negative) Urine Glucose (UA) (Negative) Urine Bacteria (None) /hpf Comments: awake overnight monitor shows an occasional PVC Chest x-ray: report reviewed Thrombosis Risk Factor Assmnt - DVT/VTE Prophylaxis DVT/VTE Prophylaxis: Low risk, early ambulation encouraged - Choose All That Apply Any of the Below Risk Factors Present?: Yes Each Factor Represents 1 point: Age 41-60 years, Obesity (BMI >25) Thrombosis Risk Factor Assessment Total Risk Factor Score: 2 Thrombosis Risk Factor Assessment Level: Low Risk Assessment and Plan (1) Right lower lobe pneumonia Current Visit: Yes Status: Acute Code(s): J18.9 - PNEUMONIA, UNSPECIFIED ORGANISM SNOMED Code(s): 286835829 (2) Diabetes Current Visit: Yes Status: Acute Code(s): E11.9 - TYPE 2 DIABETES MELLITUS WITHOUT COMPLICATIONS SNOMED Code(s): 58770050 (3) BPH (benign prostatic hyperplasia) Current Visit: Yes Status: Acute Code(s): N40.0 - BENIGN PROSTATIC HYPERPLASIA WITHOUT LOWER URINRY TRACT SYMP SNOMED Code(s): 783168355 (4) Hyperlipidemia Current Visit: Yes Status: Acute Code(s): E78.5 - HYPERLIPIDEMIA, UNSPECIFIED SNOMED Code(s): 90583252 (5) Chest pain Current Visit: Yes Status: Acute Code(s): R07.9 - CHEST PAIN, UNSPECIFIED SNOMED Code(s): 00851600 Plan: he'll be admitted for IV antibiotics, we'll reevaluate his chest x-ray and labs soon.
--- NOTE | 2019-08-29 12:07 | P.DS ---
Providers Date of admission: 08/27/19 22:28 Expected date of discharge: 08/28/19 Attending physician: Mark Pena Primary care physician: Mark Pena - Discharge Diagnosis(es) (1) Right lower lobe pneumonia Status: Acute (2) Diabetes Status: Acute (3) BPH (benign prostatic hyperplasia) Status: Acute (4) Hyperlipidemia Status: Acute (5) Chest pain Status: Acute Hospital Course: this is a pleasant 53-year-old white male well-known to the practice.he has type 2 diabetes. He started experiencing chest pain before coming to the emergency room. He was sweaty and mildly short of breath as well. He indicates that he felt better with work. He came home to [facility] and was having severe stabbing chest pain midsternal. The pain is not radiating. He again felt short of breath and sweaty. Patient emergency room had troponins negative. Chest x-ray findings of pneumonia. This a.m. he currently says chest pains much better. He is not short of breath. He does not have any nausea or vomiting. He has minimal cough 08/28/2019 addendum: Patient is feeling much better with IV fluids and IV antibiotics. He is requesting discharge. X-ray was reviewed from this morning she has slightly worsened right lower lobe pneumonia compared to yesterday emergency room. His physical exams the lungs show mostly clear at this time. Patient's bili coughing. We'll plan on him being discharged home with close out patient follow-up on August 31 in the office. He is instructed to follow-up in the emergency room should he have worsening symptoms.he will go home on albuterol HFA,Ceftin and a taper prednisone. Patient Condition at Discharge: Fair Plan - Discharge Summary New Discharge Prescriptions: New Cefuroxime Axetil [Ceftin] 500 mg PO BID #10 tab predniSONE 10 mg PO DIRECTED #30 tab Albuterol Inhaler [Ventolin Hfa Inhaler] 2 puff INHALATION RT-Q6H PRN #1 inhaler PRN Reason: Shortness Of Breath Continue Fenofibrate 160 mg PO HS Pioglitazone [Actos] 30 mg PO DAILY Omeprazole 20 mg PO BID Multivitamin [Men's Multi-Vitamin] 1 tab PO DAILY Tamsulosin [Flomax] 0.8 mg PO HS Atorvastatin [Lipitor] 40 mg PO DAILY sitaGLIPtin PHOS/metFORMIN HCL [Janumet 50-1,000 mg Tablet] 1 tab PO BID Discharge Medication List Fenofibrate 160 mg PO HS 06/17/14 [History] Pioglitazone [Actos] 30 mg PO DAILY 06/17/14 [History] Multivitamin [Men's Multi-Vitamin] 1 tab PO DAILY 06/18/14 [History] Omeprazole 20 mg PO BID 06/18/14 [History] Atorvastatin [Lipitor] 40 mg PO DAILY 02/25/17 [History] Tamsulosin [Flomax] 0.8 mg PO HS 02/25/17 [History] sitaGLIPtin PHOS/metFORMIN HCL [Janumet 50-1,000 mg Tablet] 1 tab PO BID 02/25/17 [History] Albuterol Inhaler [Ventolin Hfa Inhaler] 2 puff INHALATION RT-Q6H PRN #1 inhaler 08/28/19 [Rx] Cefuroxime Axetil [Ceftin] 500 mg PO BID #10 tab 08/28/19 [Rx] predniSONE 10 mg PO DIRECTED #30 tab 08/28/19 [Rx] Follow up Appointment(s)/Referral(s): Mark Pena MD [Primary Care Provider] - 09/01/19 9:30 am Ambulatory/Diagnostic Orders: Complete Blood Count w/diff [LAB.AMB] Time Frame: 3 Days, Location: None Selected Patient Instructions/Handouts: Cefuroxime (By mouth), Albuterol (By breathing), Prednisone (By mouth), Bacterial Pneumonia (DC), Type 2 Diabetes Management for Adults (DC) Activity/Diet/Wound Care/Special Instructions: Activity as tolerated Consistent Carbohydrate diet Discharge Disposition: HOME SELF-CARE
== END 2019-08-28 16:45 | disposition home or self-care (01) ==
LOC: EC 19:45 → 3NMEDONC 22:28
PROVIDERS: ADMIT Family Medicine; ATTEND Family Medicine
DX: R07.89 Other chest pain (principal); J18.9 Pneumonia, unspecified organism; E11.9 Type 2 diabetes mellitus without complications; Z79.84 Long term (current) use of oral hypoglycemic drugs; I49.3 Ventricular premature depolarization; N40.0 Benign prostatic hyperplasia without lower urinary tract symptoms; E78.5 Hyperlipidemia, unspecified; R07.9 Chest pain, unspecified; E66.9 Obesity, unspecified; Z68.35 Body mass index [BMI] 35.0-35.9, adult; K21.9 Gastro-esophageal reflux disease without esophagitis; Z87.891 Personal history of nicotine dependence; Z82.49 Family history of ischemic heart disease and other diseases of the circulatory system; Z79.82 Long term (current) use of aspirin; Z79.899 Other long term (current) drug therapy
CPT/HCPCS: 96361 ×3; 96372 ×2; 96365; 99285; 36415; 94640 ×2; 93005; 80053; 80048; 83605 ×2; 84484 ×2; 85025 ×2; 85610; 85730; 81001; 87040 ×2; 87502; 71046 ×2; G0378 ×2; J1644 ×2; J0696

== ENCOUNTER → 2019-08-31 | Outpatient (CLI) | payer OTHER ==
[2019-08-31 16:40] LABS: Basophils % (A) 0 %; Eosinophils % (A) 0 %; HCT 41.7 % (39.0-53.0); HGB 13.4 gm/dL (13.0-17.5); Lymphocytes % (A) 13 %; MCH 29.7 pg (25.0-35.0); MCHC 32.2 g/dL (31.0-37.0); MCV 92.3 fL (80.0-100.0); Mean Platelet Volume 10.4; Monocytes # (A) 0.4 k/uL (0-1.0); Monocytes % (A) 5 %; Neutrophils # (A) 5.9 k/uL (1.3-7.7); Neutrophils % (A) 80 %; Platelet Count 286 k/uL (150-450); RBC 4.51 m/uL (4.30-5.90); RDW 12.9 % (11.5-15.5); WBC 7.5 k/uL (3.8-10.6)
[2019-09-01 04:27] LABS: African American GFR (CKD) 87.1 (60.0-200.0); Anion Gap 15.8 mmol/L (4.00-12.00); BUN/Creat Ratio 27.27 Ratio (12.00-20.00); Calcium 9.9 mg/dL (8.7-10.3); Carbon Dioxide 22.2 mmol/L (21.6-31.8); Non-African American GFR(CKD) 75.2 (60.0-200.0); Potassium 4.9 mmol/L (3.5-5.5)
== END | disposition home or self-care (01) ==
LOC: LABWHC1 15:28
PROVIDERS: ATTEND Nurse Practitioner
DX: J18.9 Pneumonia, unspecified organism (principal)
CPT/HCPCS: 36415; 80048; 85025

== ENCOUNTER 2019-09-02 16:02 | Emergency (ER) | payer OTHER ==
[2019-09-02 16:18] VITALS: RESP 18
[2019-09-02 16:23] LABS: Glucose,Whole Blood 354 mg/dL (75-99)
[2019-09-02] MEDS ORDERED: SODIUM CHLORIDE 0.9% 1,000 ML IV STA (17:05)
--- NOTE | 2019-09-02 17:29 | ED ---
General Adult HPI - General Chief complaint: Recheck/Abnormal Lab/Rx Stated complaint: hyperglycemia Time Seen by Provider: 09/02/19 16:45 Source: patient Mode of arrival: ambulatory Limitations: no limitations - History of Present Illness Initial comments: patient is a 53-year-old male with history of type 2 diabetes presenting to the emergency department with chief complaint of hyperglycemia. Patient states he was discharged from the hospital yesterday after 1 night stay. patient reports she was started on a prednisone taper. He reports during HIS hospital stay he received insulin. Patient typically uses 2 oral medications but no insulin. jerzy ashton denies taking medication to alleviate his symptoms. Patient reports today he noticed his sugar was in the low 400s while he was at work. Patient is currently taking the prednisone. - Related Data Home Medications Medication Instructions Recorded Confirmed Fenofibrate 160 mg PO HS 06/17/14 08/27/19 Pioglitazone [Actos] 30 mg PO DAILY 06/17/14 08/27/19 Multivitamin [Men's Multi-Vitamin] 1 tab PO DAILY 06/18/14 08/27/19 Omeprazole 20 mg PO BID 06/18/14 08/27/19 Atorvastatin [Lipitor] 40 mg PO DAILY 02/25/17 08/27/19 Tamsulosin [Flomax] 0.8 mg PO HS 02/25/17 08/27/19 sitaGLIPtin PHOS/metFORMIN HCL 1 tab PO BID 02/25/17 08/27/19 [Janumet 50-1,000 mg Tablet] Previous Rx's Medication Instructions Recorded Albuterol Inhaler [Ventolin Hfa 2 puff INHALATION RT-Q6H PRN #1 08/28/19 Inhaler] inhaler Cefuroxime Axetil [Ceftin] 500 mg PO BID #10 tab 08/28/19 predniSONE 10 mg PO DIRECTED #30 tab 08/28/19 Allergies Allergy/AdvReac Type Severity Reaction Status Date / Time No Known Allergies Allergy Verified 08/27/19 22:49 Review of Systems ROS Statement: Those systems with pertinent positive or pertinent negative responses have been documented in the HPI. ROS Other: All systems not noted in ROS Statement are negative. Past Medical History Past Medical History: Diabetes Mellitus, GERD/Reflux, Hyperlipidemia Additional Past Medical History / Comment(s): cpap at night History of Any Multi-Drug Resistant Organisms: None Reported Past Surgical History: Heart Catheterization Past Anesthesia/Blood Transfusion Reactions: Family History of Problems w/ Anesthesia Additional Past Anesthesia/Blood Transfusion Reaction / Comment(s): mom had some problems coming out of anes. Past Psychological History: No Psychological Hx Reported Smoking Status: Former smoker Past Alcohol Use History: Occasional Past Drug Use History: None Reported - Past Family History Mother Family Medical History: Coronary Artery Disease (CAD) Father Family Medical History: Coronary Artery Disease (CAD) General Exam Limitations: no limitations General appearance: alert, in no apparent distress, obese Head exam: Present: atraumatic, normocephalic, normal inspection Eye exam: Present: normal appearance Pupils: Present: normal accommodation ENT exam: Present: normal exam, normal oropharynx, mucous membranes dry, normal external ear exam Neck exam: Present: normal inspection, full ROM Respiratory exam: Present: normal lung sounds bilaterally Cardiovascular Exam: Present: regular rate, normal rhythm, normal heart sounds GI/Abdominal exam: Present: soft. Absent: distended, tenderness, guarding, rebound Extremities exam: Present: normal inspection, full ROM Back exam: Present: normal inspection, full ROM. Absent: CVA tenderness (R), CVA tenderness (L) Neurological exam: Present: alert, oriented X3 Psychiatric exam: Present: normal affect, normal mood Skin exam: Present: warm, dry, intact, normal color Course Vital Signs 09/02/19 16:16 Temperature 97.6 F Pulse Rate 96 Respiratory 18 Rate Blood Pressure 156/81 O2 Sat by Pulse 97 Oximetry Medical Decision Making - Medical Decision Making patient is a 53-year-old male presenting to the emergency department with chief complaint of elevated blood sugar. Patient denies abdominal pain nausea vomiting diarrhea. Patient has a headache. UA shows no elevation ketones but +4 glucose. On initial evaluation patient has a blood sugar of 350. Patient appears slightly dehydrated on exam. Laboratory results do not indicate DKA. Patient treated with fluids and 10 units of regular insulin. I suspect the increase in glucose is due to the prednisone taper he was discharged with from the hospital. Patient was to continue taking the prednisone as he only has several days left of low-dose prednisone. he was advised to continue monitoring his glucose levels at home for the next several hours, every hour. Patient advised to follow-up with primary care. Strict return parameters were chetan quezada discussed the patient was understanding and agreeable. Case discussed with physician. - Lab Data Result diagrams: 12/18/19 17:18 09/02/19 17:18 Lab Results 09/02/19 09/02/19 09/02/19 Range/Units 16:21 17:18 17:18 WBC 10.0 (3.8-10.6) k/uL RBC 4.84 (4.30-5.90) m/uL Hgb 14.0 (13.0-17.5) gm/dL Hct 43.5 (39.0-53.0) % MCV 89.9 (80.0-100.0) fL MCH 28.9 (25.0-35.0) pg MCHC 32.1 (31.0-37.0) g/dL RDW 13.0 (11.5-15.5) % Plt Count 325 (150-450) k/uL Neutrophils % 72 % Lymphocytes % 20 % Monocytes % 4 % Eosinophils % 0 % Basophils % 2 % Neutrophils # 7.3 (1.3-7.7) k/uL Lymphocytes # 2.0 (1.0-4.8) k/uL Monocytes # 0.4 (0-1.0) k/uL Eosinophils # 0.0 (0-0.7) k/uL Basophils # 0.2 (0-0.2) k/uL VBG pH (7.31-7.41) VBG pCO2 (37-51) mmHg VBG HCO3 (24-28) mmol/L Sodium 135 L (137-145) mmol/L Potassium 4.4 (3.5-5.1) mmol/L Chloride 98 (98-107) mmol/L Carbon Dioxide 26 (22-30) mmol/L Anion Gap 11 mmol/L BUN 25 H (9-20) mg/dL Creatinine 0.91 (0.66-1.25) mg/dL Est GFR (CKD-EPI)AfAm >90 (>60 ml/min/1.73 sqM) Est GFR (CKD-EPI)NonAf >90 (>60 ml/min/1.73 sqM) Glucose 337 H (74-99) mg/dL POC Glucose (mg/dL) 354 H (75-99) mg/dL POC Glu Candy Vendor Sabrina Phelps Calcium 9.6 (8.4-10.2) mg/dL Magnesium 1.8 (1.6-2.3) mg/dL Total Bilirubin 0.5 (0.2-1.3) mg/dL AST 49 (17-59) U/L ALT 55 H (4-49) U/L Alkaline Phosphatase 174 H (38-126) U/L Total Protein 6.9 (6.3-8.2) g/dL Albumin 4.0 (3.5-5.0) g/dL Urine Color Urine Appearance (Clear) Urine pH (5.0-8.0) Ur Specific [place] (1.001-1.035) Urine Protein (Negative) Urine Glucose (UA) (Negative) Urine Ketones (Negative) Urine Blood (Negative) Urine Nitrite (Negative) Urine Bilirubin (Negative) Urine Urobilinogen (<2.0) mg/dL Ur Leukocyte Esterase (Negative) 09/02/19 09/02/19 09/02/19 Range/Units 17:18 17:34 19:14 WBC (3.8-10.6) k/uL RBC (4.30-5.90) m/uL Hgb (13.0-17.5) gm/dL Hct (39.0-53.0) % MCV (80.0-100.0) fL MCH (25.0-35.0) pg MCHC (31.0-37.0) g/dL RDW (11.5-15.5) % Plt Count (150-450) k/uL Neutrophils % % Lymphocytes % % Monocytes % % Eosinophils % % Basophils % % Neutrophils # (1.3-7.7) k/uL Lymphocytes # (1.0-4.8) k/uL Monocytes # (0-1.0) k/uL Eosinophils # (0-0.7) k/uL Basophils # (0-0.2) k/uL VBG pH 7.42 H (7.31-7.41) VBG pCO2 40 (37-51) mmHg VBG HCO3 26 (24-28) mmol/L Sodium (137-145) mmol/L Potassium (3.5-5.1) mmol/L Chloride (98-107) mmol/L Carbon Dioxide (22-30) mmol/L Anion Gap mmol/L BUN (9-20) mg/dL Creatinine (0.66-1.25) mg/dL Est GFR (CKD-EPI)AfAm (>60 ml/min/1.73 sqM) Est GFR (CKD-EPI)NonAf (>60 ml/min/1.73 sqM) Glucose (74-99) mg/dL POC Glucose (mg/dL) 190 H (75-99) mg/dL POC Glu Candy Vendor ID Carmel Martinez Calcium (8.4-10.2) mg/dL Magnesium (1.6-2.3) mg/dL Total Bilirubin (0.2-1.3) mg/dL AST (17-59) U/L ALT (4-49) U/L Alkaline Phosphatase (38-126) U/L Total Protein (6.3-8.2) g/dL Albumin (3.5-5.0) g/dL Urine Color Light Yellow Urine Appearance Clear (Clear) Urine pH 5.5 (5.0-8.0) Ur Specific [place] 1.035 (1.001-1.035) Urine Protein Negative (Negative) Urine Glucose (UA) 4+ H (Negative) Urine Ketones Negative (Negative) Urine Blood Negative (Negative) Urine Nitrite Negative (Negative) Urine Bilirubin Negative (Negative) Urine Urobilinogen <2.0 (<2.0) mg/dL Ur Leukocyte Esterase Negative (Negative) Disposition Clinical Impression: Hypoglycemia Disposition: HOME SELF-CARE Condition: Stable Instructions (If sedation given, give patient instructions): Diabetic Ketoacidosis (DC) Additional Instructions: Please monitor your blood glucose levels closely. Follow-up with primary care tomorrow. Please return to emergency department if symptoms worsen.continue taking prednisone taper. Is patient prescribed a controlled substance at d/c from ED?: No Referrals: Mark Pena MD [Primary Care Provider] - 1-2 days Time of Disposition: 19:33
[2019-09-02 17:34] LABS: Basophils # (A) 0.2 k/uL (0-0.2); Basophils % (A) 2 %; Eosinophils % (A) 0 %; HCT 43.5 % (39.0-53.0); Lymphocytes % (A) 20 %; MCH 28.9 pg (25.0-35.0); MCHC 32.1 g/dL (31.0-37.0); MCV 89.9 fL (80.0-100.0); Mean Platelet Volume 10.1; Monocytes # (A) 0.4 k/uL (0-1.0); Monocytes % (A) 4 %; Neutrophils # (A) 7.3 k/uL (1.3-7.7); Neutrophils % (A) 72 %; Platelet Count 325 k/uL (150-450); RBC 4.84 m/uL (4.30-5.90)
[2019-09-02 17:39] LABS: Appearance,Urine Clear (Clear); Bilirubin,Urine Negative (Negative); Blood,Urine Negative (Negative); Color,Urine Light Yellow; Glucose,Urine (UA) 4+ (Negative); Ketones,Urine Negative (Negative); Leukocyte Esterase,Urine Negative (Negative); Nitrite,Urine Negative (Negative); PH, Urine 5.5 (5.0-8.0); Protein,Urine Negative (Negative); Specific Gravity,Urine 1.035 (1.001-1.035); Urobilinogen,Urine <2.0 mg/dL (<2.0)
[2019-09-02 17:45] LABS: ALT 55 U/L (4-49); AST 49 U/L (17-59); African American GFR (CKD) >90 (>60 ml/min/1.73 sqM); Alkaline Phosphatase 174 U/L (38-126); Anion Gap 11 mmol/L; Blood Urea Nitrogen 25 mg/dL (9-20); Calcium 9.6 mg/dL (8.4-10.2); Carbon Dioxide 26 mmol/L (22-30); Chloride 98 mmol/L (98-107); Glucose 337 mg/dL (74-99); Magnesium 1.8 mg/dL (1.6-2.3); Non-African American GFR(CKD) >90 (>60 ml/min/1.73 sqM); Potassium 4.4 mmol/L (3.5-5.1); Sodium 135 mmol/L (137-145); Total Bilirubin 0.5 mg/dL (0.2-1.3); Total Protein 6.9 g/dL (6.3-8.2)
[2019-09-02 17:48] LABS: VBG PH 7.42 (7.31-7.41)
[2019-09-02] MEDS ORDERED: INSULIN REGULAR 100 UNIT/ML VIAL IV ONE (17:53)
[2019-09-02 19:16] LABS: Glucose,Whole Blood 190 mg/dL (75-99)
[2019-09-02 19:46] VITALS: BP 160/82; PULSE 90; TEMP 97.9
== END 2019-09-02 19:46 | disposition home or self-care (01) ==
LOC: EC 16:02
DX: E11.649 Type 2 diabetes mellitus with hypoglycemia without coma (principal); E86.0 Dehydration; K21.9 Gastro-esophageal reflux disease without esophagitis; E78.5 Hyperlipidemia, unspecified; Z87.891 Personal history of nicotine dependence; Z79.84 Long term (current) use of oral hypoglycemic drugs; Z79.899 Other long term (current) drug therapy
CPT/HCPCS: 36415; 80053; 81003; 82803; 83735; 85025; 96360; 99284

== ENCOUNTER → 2019-10-20 | Outpatient (CLI) | payer OTHER ==
--- NOTE | 2019-10-20 17:29 | XR ---
EXAMINATION TYPE: XR shoulder complete RT DATE OF EXAM: 10/20/2019 COMPARISON: NONE HISTORY: 53-year-old male right shoulder strain, S4 6.011A TECHNIQUE: 3 views FINDINGS: Images show some bony irregularity at the greater tuberosity. Subacromial space is preserved. No tend inous or bursal calcifications. No acute fracture, subluxation, or dislocation. IMPRESSION: Bony changes suggest chronic rotator cuff tendinopathy. No acute osseous abnormality seen.
== END | disposition home or self-care (01) ==
LOC: RADXRMAIN 13:11
PROVIDERS: ATTEND Emergency Medicine
DX: M25.511 Pain in right shoulder (principal)

== ENCOUNTER → 2019-10-22 | Outpatient (CLI) | payer OTHER ==
[2019-10-22 16:44] LABS: African American GFR (CKD) >90 (>60 ml/min/1.73 sqM); Blood Urea Nitrogen 23 mg/dL (9-20); Non-African American GFR(CKD) >90 (>60 ml/min/1.73 sqM)
--- NOTE | 2019-10-22 17:57 | CT ---
EXAMINATION TYPE: CT abdomen w con DATE OF EXAM: 10/22/2019 COMPARISON: None HISTORY: Left upper quadrant abdominal pain and diarrhea. CT DLP: 1316.7 mGycm Automated exposure control for dose reduction was used. TECHNIQUE: Helical acquisition of images was performed from the lung bases through the top of iliac crest to include entire abdomen. CONTRAST: Performed with Oral Contrast and with IV Contrast, patient injected with 100ml mL of Isovue 300. FINDINGS: LUNG BASES: No significant abnormality is appreciated. LIVER/GB: Liver is reduced in attenuation correlate for hepatic steatosis. No gallstone. PANCREAS: No significant abnormality is seen. SPLEEN: No significant abnormality is seen. ADRENALS: No significant abnormality is seen. KIDNEYS: No significant abnormality is seen. BOWEL: No significant abnormality is seen. LYMPH NODES: No significant abnormality is seen. OSSEOUS STRUCTURES: Hypertrophic degenerative change of the spine. OTHER: Atherosclerotic change of the aorta. Hypertrophic and degenerative changes spine. Mild ectasia of the proximal right iliac artery measuring 1.7 cm. IMPRESSION: 1. Hepatic steatosis.
== END | disposition home or self-care (01) ==
LOC: RADCTMAIN 16:08
PROVIDERS: ATTEND Family Medicine
DX: K76.0 Fatty (change of) liver, not elsewhere classified (principal)
CPT/HCPCS: 82565; 84520; 74160; 36415; Q9967

== ENCOUNTER → 2019-11-06 | Outpatient (CLI) | payer OTHER ==
--- NOTE | 2019-11-06 22:32 | MR ---
EXAMINATION TYPE: MR shoulder RT wo con DATE OF EXAM: 11/06/2019 COMPARISON: None HISTORY: Rt shoulder injury Technique: Multiplanar, multiecho imaging on a 3.0 Megan magnet is performed through the shoulder. Findings: Long head of the biceps tendon is within the bicipital groove. No significant joint effusion is evident.Glenoid labrum as visualized on this noncontrast study appea rs intact. There may be some narrowing of the glenohumeral joint space compatible with osteoarthritic degenerative change. Rotator cuff tendons are evaluated. There is fluid in the subacromial bursa and subdeltoid bursa. Glynn praspinatus tendon appears without retraction small perforation under the distal acromion is not excl uded. Series 601 image 11, series 401 image 16. Consider MRI arthrogram for confirmation. Otherwise, no suspicious tendon tear or perforation identified. No asymmetric muscle atrophy is present. There i s some diffuse muscle atrophy through the musculature. No muscle or tendon retraction is evident. The acromioclavicular junction is hypertrophied which can contribute to impingement syndrome. IMPRESSIONS: 1. Small perforation of the distal supraspinatus tendon is not excluded. MRI arthrogram could be perf ormed for confirmation. 2. Moderate tendinosis of the supraspinatus tendon. 3. Osteoarthritic degenerative change glenohumeral junction
== END | disposition home or self-care (01) ==
LOC: RADMRIMAIN 21:26
PROVIDERS: ATTEND Emergency Medicine
DX: M19.011 Primary osteoarthritis, right shoulder (principal); M77.9 Enthesopathy, unspecified

== ENCOUNTER → 2022-07-18 | Outpatient (CLI) | payer OTHER ==
[2022-07-18 18:24] LABS: BUN/Creat Ratio 20.67 Ratio (12.00-20.00); Blood Urea Nitrogen 18.6 mg/dL (9.0-27.0); Carbon Dioxide 25.1 mmol/L (20.0-27.5); Chloride 102 mmol/L (96-109); Glucose 158 mg/dL (70-110); Potassium 4.6 mmol/L (3.5-5.5); Sodium 138 mmol/L (135-145)
[2022-07-18 18:25] LABS: ALT 72 U/L (10-49); AST 55 U/L (14-35); African American GFR (CKD) 108.7 (60.0-200.0); Albumin 4.6 g/dL (3.8-4.9); Alkaline Phosphatase 55 U/L (41-126); Chol/HDL Ratio 3.62 Ratio; LDL Cholesterol,Calculated 67.1 mg/dL (0.0-131.0); Non-African American GFR(CKD) 93.8 (60.0-200.0); Total Protein 6.6 g/dL (6.2-8.2)
== END | disposition home or self-care (01) ==
LOC: LABWHC1 10:25
PROVIDERS: ATTEND Nurse Practitioner Family
DX: E11.65 Type 2 diabetes mellitus with hyperglycemia (principal)
CPT/HCPCS: 36415; 80053; 80061

== ENCOUNTER 2023-05-11 01:12 | Emergency (ER) | payer OTHER ==
[2023-05-11 01:33] VITALS: TEMP 97.8
--- NOTE | 2023-05-11 03:26 | CT ---
EXAMINATION TYPE: CT abdomen pelvis wo con DATE OF EXAM: 05/11/2023 COMPARISON: 10/22/2019 HISTORY: 57 year-old male left flank pain Patient comes in with complaints of lower back pain that ra diates to groin. Denies any urinary issues CT DLP: 1026.4 mGycm. Automated exposure control for dose reduction was used. TECHNIQUE: Contiguous axial scanning of the abdomen and pelvis without IV contrast. Coronal and sagit amador reconstructions performed. FINDINGS: Heart normal size of pericardial effusion. Coronary artery calcifications are present throughout. Faustino g bases clear without pleural effusion. Liver enlarged at 20.9 cm with low-attenuation suggesting fatty infiltration. Gallbladder, adrenal glands, spleen, and pancreas show no gross abnormality by noncontrast technique. There is a tiny 6 mm cortical cyst medial lower pole right kidney. There is mild left-sided hydronephrosis and left-sided hydroureter with a 6 mm stone in the proximal left ureter. A couple punctate nonobstructive 2 mm left lower pole renal calculi are present. No dilated small bowel, free fluid, or free air. Moderate atherosclerotic calcifications infrarenal abdominal aorta and iliac arteries. Fusiform mild aneurysm right common iliac artery 2.1 cm versus 1.8 cm back in 2019. No mesenteric or retroperitoneal lymphadenopathy. Normal appendix. Mild to moderate stool burden. No pericolic inflammatory change. Bladder is urine distended. No abnormal fluid collection in the pelvis or pelvic lymphadenopathy. Bones: Degenerative change of the bilateral SI joints and lower lumbar spine. IMPRESSION: 1. A 6 mm stone in the proximal left ureter with mild obstructive uropathy. 2. A couple additional punctate 2 mm nonobstructive left renal calculi. 3. Hepatomegaly at 20.9 cm with underlying hepatic steatosis. 4. 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
[2023-05-11 03:29] LABS: Basophils % (A) 0 %; Eosinophils # (A) 0.2 k/uL (0-0.7); Eosinophils % (A) 3 %; HCT 37.5 % (39.0-53.0); HGB 12.4 gm/dL (13.0-17.5); Lymphocytes # (A) 2.1 k/uL (1.0-4.8); Lymphocytes % (A) 28 %; MCH 30.8 pg (25.0-35.0); MCHC 33.1 g/dL (31.0-37.0); MCV 92.9 fL (80.0-100.0); Monocytes # (A) 0.6 k/uL (0-1.0); Monocytes % (A) 7 %; Neutrophils # (A) 4.3 k/uL (1.3-7.7); Neutrophils % (A) 57 %; Platelet Count 169 k/uL (150-450); RBC 4.04 m/uL (4.30-5.90); RDW 13.1 % (11.5-15.5); WBC 7.5 k/uL (3.8-10.6)
[2023-05-11 03:34] LABS: Appearance,Urine Clear (Clear); Bilirubin,Urine Negative (Negative); Blood,Urine Negative (Negative); Color,Urine Light Yellow; Glucose,Urine (UA) 4+ (Negative); Ketones,Urine Negative (Negative); Leukocyte Esterase,Urine Negative (Negative); Nitrite,Urine Negative (Negative); PH, Urine 5.5 (5.0-8.0); Protein,Urine Negative (Negative); Specific Gravity,Urine 1.023 (1.001-1.035); Urobilinogen,Urine <2.0 mg/dL (<2.0)
[2023-05-11 03:46] LABS: ALT 34 U/L (4-49); AST 28 U/L (17-59); African American GFR (CKD) 73 (>60 ml/min/1.73 sqM); Albumin 3.7 g/dL (3.5-5.0); Alkaline Phosphatase 83 U/L (38-126); Anion Gap 6 mmol/L; Blood Urea Nitrogen 26 mg/dL (9-20); Calcium 9.4 mg/dL (8.4-10.2); Carbon Dioxide 25 mmol/L (22-30); Chloride 104 mmol/L (98-107); Glucose 178 mg/dL (74-99); Lipase 99 U/L (23-300); Non-African American GFR(CKD) 63 (>60 ml/min/1.73 sqM); Potassium 4.2 mmol/L (3.5-5.1); Sodium 135 mmol/L (137-145); Total Bilirubin 0.4 mg/dL (0.2-1.3); Total Protein 6.1 g/dL (6.3-8.2)
[2023-05-11] MEDS ORDERED: TAMSULOSIN 0.4 MG CAP.ER.24H PO STA (03:53)
--- NOTE | 2023-05-11 04:02 | ED ---
Back Pain HPI - General Chief Complaint: Back Pain/Injury Stated Complaint: Lower back pain Time Seen by Provider: 05/11/23 01:51 Source: patient Limitations: no limitations - History of Present Illness Initial Comments: Patient is a 57-year-old male who presents the emergency department for left back pain. It has intermittently been occurring since early April. Patient has pain in the left back which radiates to his left side and groin. Denies fever, chills, nausea, vomiting. Denies burning with urination, urinary frequency/urgency, blood in the urine, penile discharge. No concerns for sexually transmitted infections. Denies constipation, diarrhea, blood in the stool. Denies history of kidney stone. Patient took Motrin are to arrival he has no pain currently. - Related Data Home Medications Medication Instructions Recorded Confirmed Fenofibrate 160 mg PO HS 06/17/14 08/27/19 Pioglitazone [Actos] 30 mg PO DAILY 06/17/14 08/27/19 Multivitamin [Men's Multi-Vitamin] 1 tab PO DAILY 06/18/14 08/27/19 Omeprazole 20 mg PO BID 06/18/14 08/27/19 Atorvastatin [Lipitor] 40 mg PO DAILY 02/25/17 08/27/19 Tamsulosin [Flomax] 0.8 mg PO HS 02/25/17 08/27/19 sitaGLIPtin PHOS/metFORMIN HCL 1 tab PO BID 02/25/17 08/27/19 [Janumet 50-1,000 mg Tablet] Previous Rx's Medication Instructions Recorded Albuterol Inhaler [Ventolin Hfa 2 puff INHALATION RT-Q6H PRN #1 08/28/19 Inhaler] inhaler cefUROXime axetiL [Ceftin] 500 mg PO BID #10 tab 08/28/19 predniSONE 10 mg PO DIRECTED #30 tab 08/28/19 Allergies Allergy/AdvReac Type Severity Reaction Status Date / Time No Known Allergies Allergy Verified 05/11/23 01:33 Review of Systems ROS Statement: Those systems with pertinent positive or pertinent negative responses have been documented in the HPI. ROS Other: All systems not noted in ROS Statement are negative. Past Medical History Past Medical History: Diabetes Mellitus, GERD/Reflux, Hyperlipidemia Additional Past Medical History / Comment(s): cpap at night History of Any Multi-Drug Resistant Organisms: None Reported Past Surgical History: Heart Catheterization Past Anesthesia/Blood Transfusion Reactions: Family History of Problems w/ Anesthesia Additional Past Anesthesia/Blood Transfusion Reaction / Comment(s): mom had some problems coming out of anes. Past Psychological History: No Psychological Hx Reported Smoking Status: Never smoker Past Alcohol Use History: Occasional Past Drug Use History: None Reported - Past Family History Mother Family Medical History: Coronary Artery Disease (CAD) Father Family Medical History: Coronary Artery Disease (CAD) General Exam Limitations: no limitations General appearance: alert Respiratory exam: Present: normal lung sounds bilaterally. Absent: respiratory distress, wheezes, rales, rhonchi, stridor Cardiovascular Exam: Present: regular rate, normal rhythm, normal heart sounds. Absent: systolic murmur, diastolic murmur, rubs, gallop, clicks GI/Abdominal exam: Present: soft, normal bowel sounds. Absent: distended, tenderness, guarding, rebound, rigid Back exam: Absent: CVA tenderness (R), CVA tenderness (L) Neurological exam: Present: alert Psychiatric exam: Present: normal affect, normal mood Skin exam: Present: warm, dry, intact, normal color. Absent: rash Course Vital Signs 05/11/23 05/11/23 01:31 04:08 Temperature 97.8 F Pulse Rate 83 67 Respiratory 18 16 Rate Blood Pressure 150/82 146/80 O2 Sat by Pulse 97 95 Oximetry Medical Decision Making - Medical Decision Making Was pt. sent in by a medical professional or institution (VIVIEN Mcdaniel, OWNER SPA DIRECTOR, urgent care, hospital, or shelter...) When possible be specific @ -No Did you speak to anyone other than the patient for history (EMS, parent, family, police, friend...)? What history was obtained from this source @ -No Did you review nursing and triage notes (agree or disagree)? Why? @ -I reviewed and agree with nursing and triage notes Were old charts reviewed (outside hosp., previous admission, EMS record, old EKG, old radiological studies, urgent care reports/EKG's, shelter records)? Report findings @ -No old charts were reviewed Differential Diagnosis (chest pain, altered mental status, abdominal pain women, abdominal pain men, vaginal bleeding, weakness, fever, dyspnea, syncope, headache, dizziness, GI bleed, back pain, seizure, CVA, palpatations, mental health)? @ -Differential Abdominal Pain Men: Appendicitis, cholecystitis, diverticulosis, ischemic bowel, pancreatitis, hepatitis, UTI, gastroenteritis, AAA, incarcerated hernia, bowel obstruction, constipation, inflammatory bowel, hepatitis, peptic ulcer disease, splenic i nfarction, perforated viscus, testicular torsion, this is not meant to be an all-inclusive list EKG interpreted by me (3pts min.). @ -As above X-rays interpreted by me (1pt min.). @ -None done CT interpreted by me (1pt min.). @ -6 mm proximal left ureteral stone with mild hydronephrosis. Hepatomegaly with underlying hepatic steatosis. 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 min.). @ -None done What testing was considered but not performed or refused? (CT, X-rays, U/S, labs)? Why? @ -None What meds were considered but not given or refused? Why? @ -Patient declined pain medication he has no pain currently Did you discuss the management of the patient with other professionals (professionals i.e. , PA, OWNER SPA DIRECTOR, lab, RT, psych nurse, social work associate, country manager, teacher, sailing officer, registered nurse hh case manager)? Give summary @ -No Was smoking cessation discussed for >3mins.? @ -No Was critical care preformed (if so, how long)? @ -No Were there social determinants of health that impacted care today? How? (Homelessness, low income, unemployed, alcoholism, drug addiction, transportation, low edu. Level, literacy, decrease access to med. care, senior living, rehab)? @ -No Was there de-escalation of care discussed even if they declined (Discuss DNR or withdrawal of care, Hospice)? DNR status @ -No What co-morbidities impacted this encounter? (DM, HTN, Smoking, COPD, CAD, Cancer, CVA, ARF, Chemo, Hep., AIDS, mental health diagnosis, sleep apnea, morbid obesity)? @ -None Was patient admitted / discharged? Hospital course, mention meds given and route, prescriptions, significant lab abnormalities, going to OR and other pertinent info. @ -Patient presenting with left back pain. He has a 6 mm proximal left ureteral stone with mild hydronephrosis. No acute kidney injury. No evidence of infection. Patient currently asymptomatic. This can be managed outpatient. Patient already on Flomax. He is referred to urology is today. We discussed the incidental findings on CT as well. Patient to follow up with urology and primary care provider Undiagnosed new problem with uncertain prognosis? @ -[No] Drug Therapy requiring intensive monitoring for toxicity (Heparin, Nitro, Insulin, Cardizem)? @ -[No] Were any procedures done? @ -[No] Diagnosis/symptom? @Kidney stone Acute, or Chronic, or Acute on Chronic? @ -Acute Uncomplicated (without systemic symptoms) or Complicated (systemic symptoms)? @Uncomplicated Side effects of treatment? @ -[No] Exacerbation, Progression, or Severe Exacerbation? @ -[No] Poses a threat to life or bodily function? How? (Chest pain, USA, IA, pneumonia, PE, COPD, DKA, ARF, appy, cholecystitis, CVA, Diverticulitis, Homicidal, Suicidal, threat to staff... and all critical care pts) @ -[No] Dr. Vogel is my attending - Lab Data Result diagrams: 05/11/23 02:26 05/11/23 02:26 Lab Results 05/11/23 05/11/23 05/11/23 Range/Units 02:26 02:26 02:26 WBC 7.5 (3.8-10.6) k/uL RBC 4.04 L (4.30-5.90) m/uL Hgb 12.4 L (13.0-17.5) gm/dL Hct 37.5 L (39.0-53.0) % MCV 92.9 (80.0-100.0) fL MCH 30.8 (25.0-35.0) pg MCHC 33.1 (31.0-37.0) g/dL RDW 13.1 (11.5-15.5) % Plt Count 169 (150-450) k/uL MPV 11.0 Neutrophils % 57 % Lymphocytes % 28 % Monocytes % 7 % Eosinophils % 3 % Basophils % 0 % Neutrophils # 4.3 (1.3-7.7) k/uL Lymphocytes # 2.1 (1.0-4.8) k/uL Monocytes # 0.6 (0-1.0) k/uL Eosinophils # 0.2 (0-0.7) k/uL Basophils # 0.0 (0-0.2) k/uL Sodium 135 L (137-145) mmol/L Potassium 4.2 (3.5-5.1) mmol/L Chloride 104 (98-107) mmol/L Carbon Dioxide 25 (22-30) mmol/L Anion Gap 6 mmol/L BUN 26 H (9-20) mg/dL Creatinine 1.25 (0.66-1.25) mg/dL Est GFR (CKD-EPI)AfAm 73 (>60 ml/min/1.73 sqM) Est GFR (CKD-EPI)NonAf 63 (>60 ml/min/1.73 sqM) Glucose 178 H (74-99) mg/dL Plasma Lactic Acid Daniel (0.7-2.0) mmol/L Calcium 9.4 (8.4-10.2) mg/dL Total Bilirubin 0.4 (0.2-1.3) mg/dL AST 28 (17-59) U/L ALT 34 (4-49) U/L Alkaline Phosphatase 83 (38-126) U/L Total Protein 6.1 L (6.3-8.2) g/dL Albumin 3.7 (3.5-5.0) g/dL Lipase 99 (23-300) U/L Urine Color Light Yellow Urine Appearance Clear (Clear) Urine pH 5.5 (5.0-8.0) Ur Specific [place] 1.023 (1.001-1.035) Urine Protein Negative (Negative) Urine Glucose (UA) 4+ H (Negative) Urine Ketones Negative (Negative) Urine Blood Negative (Negative) Urine Nitrite Negative (Negative) Urine Bilirubin Negative (Negative) Urine Urobilinogen <2.0 (<2.0) mg/dL Ur Leukocyte Esterase Negative (Negative) 05/11/23 Range/Units 02:26 WBC (3.8-10.6) k/uL RBC (4.30-5.90) m/uL Hgb (13.0-17.5) gm/dL Hct (39.0-53.0) % MCV (80.0-100.0) fL MCH (25.0-35.0) pg MCHC (31.0-37.0) g/dL RDW (11.5-15.5) % Plt Count (150-450) k/uL MPV Neutrophils % % Lymphocytes % % Monocytes % % Eosinophils % % Basophils % % Neutrophils # (1.3-7.7) k/uL Lymphocytes # (1.0-4.8) k/uL Monocytes # (0-1.0) k/uL Eosinophils # (0-0.7) k/uL Basophils # (0-0.2) k/uL Sodium (137-145) mmol/L Potassium (3.5-5.1) mmol/L Chloride (98-107) mmol/L Carbon Dioxide (22-30) mmol/L Anion Gap mmol/L BUN (9-20) mg/dL Creatinine (0.66-1.25) mg/dL Est GFR (CKD-EPI)AfAm (>60 ml/min/1.73 sqM) Est GFR (CKD-EPI)NonAf (>60 ml/min/1.73 sqM) Glucose (74-99) mg/dL Plasma Lactic Acid Daniel 1.3 (0.7-2.0) mmol/L Calcium (8.4-10.2) mg/dL Total Bilirubin (0.2-1.3) mg/dL AST (17-59) U/L ALT (4-49) U/L Alkaline Phosphatase (38-126) U/L Total Protein (6.3-8.2) g/dL Albumin (3.5-5.0) g/dL Lipase (23-300) U/L Urine Color Urine Appearance (Clear) Urine pH (5.0-8.0) Ur Specific [place] (1.001-1.035) Urine Protein (Negative) Urine Glucose (UA) (Negative) Urine Ketones (Negative) Urine Blood (Negative) Urine Nitrite (Negative) Urine Bilirubin (Negative) Urine Urobilinogen (<2.0) mg/dL Ur Leukocyte Esterase (Negative) Disposition Clinical Impression: Kidney stone Disposition: HOME SELF-CARE Condition: Good Instructions (If sedation given, give patient instructions): Kidney Stones (ED) Additional Instructions: Alternate Tylenol and Motrin every 3-4 hours for pain. Continue Flomax. Follow-up with urology in 1-2 days. It is also important to follow up with primary care provider regarding aneurysm of the right common iliac artery. Return to emergency department if you experience new, concerning, or worsening symptoms Is patient prescribed a controlled substance at d/c from ED?: No Referrals: Mark Pena MD [Primary Care Provider] - 1-2 days
[2023-05-11 04:09] VITALS: BP 146/80; PULSE 67; RESP 16
== END 2023-05-11 04:09 | disposition home or self-care (01) ==
LOC: EC 01:12
DX: N20.2 Calculus of kidney with calculus of ureter (principal); K76.0 Fatty (change of) liver, not elsewhere classified; E11.9 Type 2 diabetes mellitus without complications; K21.9 Gastro-esophageal reflux disease without esophagitis; E78.5 Hyperlipidemia, unspecified; Z79.84 Long term (current) use of oral hypoglycemic drugs; Z79.899 Other long term (current) drug therapy
CPT/HCPCS: 36415; 74176; 80053; 81003; 83605; 83690; 85025; 99284

== ENCOUNTER 2023-09-17 07:13 | Emergency (ER) | payer OTHER ==
[2023-09-17] MEDS ORDERED: ONDANSETRON 4 MG/2 ML VIAL IVP STA (07:37)
[2023-09-17] MEDS ORDERED: SODIUM CHLORIDE 0.9% 2,000 ML IV STA (07:37)
[2023-09-17] MEDS ORDERED: FAMOTIDINE 20 MG/2 ML VIAL IV STA (07:37)
[2023-09-17] MEDS ORDERED: KETOROLAC 15 MG/ML 1 ML VIAL IVP STA ×2 (07:38→09:35)
--- NOTE | 2023-09-17 07:42 | ED ---
Nausea/Vomiting/Diarrhea HPI - General Chief complaint: Nausea/Vomiting/Diarrhea Stated complaint: NV,Bodyaches Time Seen by Provider: 09/17/23 07:26 Source: patient, family, RN notes reviewed Mode of arrival: ambulatory Limitations: no limitations - History of Present Illness Initial comments: This is a 57-year-old male who presents to the emergency department for nausea and vomiting. Symptoms started last night. He last threw up around 6 AM this morning, but has since been able to keep down some sips of water. Reports generalized abdominal discomfort from all of the vomiting, worse in the epigastric region. Also states that he had loose stools yesterday. Reports associated body aches and generalized fatigue. Denies any fevers/chills, chest pain, or shortness of breath. He was around his son on , who tested positive for Covid. Reports a headache and some cough/congestion as well. MD complaint: nausea, vomiting - Related Data Home Medications Medication Instructions Recorded Confirmed Fenofibrate 160 mg PO HS 06/17/14 08/27/19 Pioglitazone [Actos] 30 mg PO DAILY 06/17/14 08/27/19 Multivitamin [Men's Multi-Vitamin] 1 tab PO DAILY 06/18/14 08/27/19 Omeprazole 20 mg PO BID 06/18/14 08/27/19 Atorvastatin [Lipitor] 40 mg PO DAILY 02/25/17 08/27/19 Tamsulosin [Flomax] 0.8 mg PO HS 02/25/17 08/27/19 sitaGLIPtin PHOS/metFORMIN HCL 1 tab PO BID 02/25/17 08/27/19 [Janumet 50-1,000 mg Tablet] Previous Rx's Medication Instructions Recorded Albuterol Inhaler [Ventolin Hfa 2 puff INHALATION RT-Q6H PRN #1 08/28/19 Inhaler] inhaler cefUROXime axetiL [Ceftin] 500 mg PO BID #10 tab 08/28/19 predniSONE 10 mg PO DIRECTED #30 tab 08/28/19 Ondansetron Odt [Zofran Odt] 4 mg PO Q8HR PRN #20 tab 09/17/23 Allergies Allergy/AdvReac Type Severity Reaction Status Date / Time No Known Allergies Allergy Verified 09/17/23 07:26 Review of Systems ROS Statement: Those systems with pertinent positive or pertinent negative responses have been documented in the HPI. ROS Other: All systems not noted in ROS Statement are negative. Past Medical History Past Medical History: Diabetes Mellitus, GERD/Reflux, Hyperlipidemia Additional Past Medical History / Comment(s): cpap at night History of Any Multi-Drug Resistant Organisms: None Reported Past Surgical History: Heart Catheterization Past Anesthesia/Blood Transfusion Reactions: Family History of Problems w/ Anesthesia Additional Past Anesthesia/Blood Transfusion Reaction / Comment(s): mom had some problems coming out of anes. Past Psychological History: No Psychological Hx Reported Smoking Status: Never smoker Past Alcohol Use History: Occasional Past Drug Use History: None Reported - Past Family History Mother Family Medical History: Coronary Artery Disease (CAD) Father Family Medical History: Coronary Artery Disease (CAD) General Exam Limitations: no limitations General appearance: alert, in no apparent distress Head exam: Present: atraumatic, normocephalic, normal inspection Respiratory exam: Present: normal lung sounds bilaterally. Absent: respiratory distress, wheezes, rales, rhonchi, stridor Cardiovascular Exam: Present: normal rhythm, tachycardia GI/Abdominal exam: Present: soft, normal bowel sounds. Absent: distended, tenderness, guarding, rebound, rigid Neurological exam: Present: alert, oriented X3, CN II-XII intact Psychiatric exam: Present: normal affect, normal mood Skin exam: Present: warm, dry, intact, normal color. Absent: rash Course Vital Signs 09/17/23 09/17/23 09/17/23 07:22 08:05 09:05 Temperature 98 F Pulse Rate 132 H 115 H 106 H Respiratory 18 18 18 Rate Blood Pressure 139/79 133/80 115/71 O2 Sat by Pulse 95 97 96 Oximetry 09/17/23 09/17/23 10:18 11:21 Temperature 98.6 F Pulse Rate 105 H 110 H Respiratory 18 19 Rate Blood Pressure 122/56 135/70 O2 Sat by Pulse 98 95 Oximetry Medical Decision Making - Medical Decision Making This is a 57-year-old male who presents to the emergency department for nausea and vomiting. Was pt. sent in by a medical professional or institution? @ -No Did you speak to anyone other than the patient for history? @ -No Did you review nursing and triage notes? @ -Yes, and I agree, it is accurate with regards to the patient's symptoms. Were old charts reviewed? @ -No Differential Diagnosis? @ -Differential Nausea and Vomiting: Gastroenteritis, cholecystitis, appendicitis, pancreatitis, migraine, benign positional vertigo, food borne illness, pyelonephritis, irritable bowel syndrome, influenza, Covid, GERD, incarcerated hernia, intestinal obstruction, this is not meant to be an all-inclusive list. EKG interpreted by me (3pts min.)? @ -EKG interpreted by me demonstrating the following: Sinus tachycardia. Ventricular rate 118 bpm, MT interval 171 ms, QRS duration 96 ms, QTC 384 ms. X-rays interpreted by me (1pt min.)? @ -Not obtained CT interpreted by me (1pt min.)? @ -Not obtained U/S interpreted by me (1pt. min.)? @ -Gallbladder US obtained. My interpretation identifies no evidence of cholelithiasis. What testing was considered but not performed? (CT, X-rays, U/S, labs)? Why? @ -None What meds were considered but not given? Why? @ -None Did you discuss the management of the patient with other professionals? @ -No Did you reconcile home meds? @ -No Was smoking cessation discussed for >3mins.? @ -No Was critical care preformed (if so, how long)? @ -No Were there social determinants of health that impacted care today? How? (Homelessness, low income, unemployed, alcoholism, drug addiction, tra nsportation, low edu. Level, literacy, decrease access to med. care, correction, rehab)? @ -No Was there de-escalation of care discussed even if they declined? (Discuss DNR or withdrawal of care, Hospice)? @ -No What co-morbidities impacted this encounter? (DM, HTN, Smoking, COPD, CAD, Cancer, CVA, Hep., AIDS, mental health diagnosis, sleep apnea, morbid obesity)? @ -DM, GERD Was patient admitted / discharged? @ -Discharged. Lab work obtained revealing mild leukocytosis, signs of dehydration, and mild hypomagnesemia. Acetone negative. Covid, influenza, and RSV testing were negative. Patient treated with IV fluids, Toradol, Zofran, and famotidine, with improvement in symptoms. 2g magnesium sulfate administered for the hypomagnesemia. Patient was tolerating oral intake at that time, and felt stable for discharge home. Rx for Zofran provided with dosing instructions reviewed. He is advised to slowly advance his diet as tolerated and remain well-hydrated. Undiagnosed new problem with uncertain prognosis? @ -None Drug Therapy requiring intensive monitoring for toxicity (Heparin, Nitro, Insulin, Cardizem)? @ -None Were any procedures done? @ -None Diagnosis/symptom? @ -Nausea and vomiting, hypomagnesemia Acute, or Chronic, or Acute on Chronic? @ -Acute Uncomplicated (without systemic symptoms) or Complicated (systemic symptoms)? @ -Uncomplicated Side effects of treatment? @ -None Exacerbation, Progression, or Severe Exacerbation] @ -Not applicable Poses a threat to life or bodily function? @ -This will depend on how he progresses. Return precautions reviewed in depth, the patient is instructed to return to the emergency department with any new, worsening, or concerning symptoms. Patient verbalized understanding. This case was discussed in detail with the attending ED physician, Dr. Funez. Presentation, findings, and treatment plan discussed in detail as well. - Lab Data Result diagrams: 09/17/23 07:48 09/17/23 07:48 Lab Results 09/17/23 09/17/23 09/17/23 Range/Units 07:48 07:48 07:48 WBC 11.4 H (3.8-10.6) k/uL RBC 4.86 (4.30-5.90) m/uL Hgb 14.9 (13.0-17.5) gm/dL Hct 44.2 (39.0-53.0) % MCV 91.0 (80.0-100.0) fL MCH 30.7 (25.0-35.0) pg MCHC 33.7 (31.0-37.0) g/dL RDW 13.0 (11.5-15.5) % Plt Count 196 (150-450) k/uL MPV 10.5 Neutrophils % 90 % Lymphocytes % 3 % Monocytes % 5 % Eosinophils % 1 % Basophils % 0 % Neutrophils # 10.3 H (1.3-7.7) k/uL Lymphocytes # 0.4 L (1.0-4.8) k/uL Monocytes # 0.5 (0-1.0) k/uL Eosinophils # 0.1 (0-0.7) k/uL Basophils # 0.0 (0-0.2) k/uL Sodium 141 (137-145) mmol/L Potassium 4.0 (3.5-5.1) mmol/L Chloride 106 (98-107) mmol/L Carbon Dioxide 19 L (22-30) mmol/L Anion Gap 16 mmol/L BUN 26 H (9-20) mg/dL Creatinine 0.92 (0.66-1.25) mg/dL Est GFR (CKD-EPI)AfAm >90 (>60 ml/min/1.73 sqM) Est GFR (CKD-EPI)NonAf >90 (>60 ml/min/1.73 sqM) Glucose 222 H (74-99) mg/dL Calcium 9.3 (8.4-10.2) mg/dL Phosphorus 3.2 (2.5-4.5) mg/dL Magnesium 1.5 L (1.6-2.3) mg/dL Total Bilirubin 0.5 (0.2-1.3) mg/dL AST 28 (17-59) U/L ALT 33 (4-49) U/L Alkaline Phosphatase 73 (38-126) U/L Total Protein 7.1 (6.3-8.2) g/dL Albumin 4.3 (3.5-5.0) g/dL Amylase 51 (30-110) U/L Lipase 75 (23-300) U/L Urine Color Urine Appearance (Clear) Urine pH (5.0-8.0) Ur Specific [place] (1.001-1.035) Urine Protein (Negative) Urine Glucose (UA) (Negative) Urine Ketones (Negative) Urine Blood (Negative) Urine Nitrite (Negative) Urine Bilirubin (Negative) Urine Urobilinogen (<2.0) mg/dL Ur Leukocyte Esterase (Negative) Acetone, Qual Negative (Negative) Influenza Type A (PCR) Not Detected (Not Detectd) Influenza Type B (PCR) Not Detected (Not Detectd) RSV (PCR) Not Detected (Not Detectd) SARS-CoV-2 (PCR) Not Detected (Not Detectd) 09/17/23 Range/Units 07:48 WBC (3.8-10.6) k/uL RBC (4.30-5.90) m/uL Hgb (13.0-17.5) gm/dL Hct (39.0-53.0) % MCV (80.0-100.0) fL MCH (25.0-35.0) pg MCHC (31.0-37.0) g/dL RDW (11.5-15.5) % Plt Count (150-450) k/uL MPV Neutrophils % % Lymphocytes % % Monocytes % % Eosinophils % % Basophils % % Neutrophils # (1.3-7.7) k/uL Lymphocytes # (1.0-4.8) k/uL Monocytes # (0-1.0) k/uL Eosinophils # (0-0.7) k/uL Basophils # (0-0.2) k/uL Sodium (137-145) mmol/L Potassium (3.5-5.1) mmol/L Chloride (98-107) mmol/L Carbon Dioxide (22-30) mmol/L Anion Gap mmol/L BUN (9-20) mg/dL Creatinine (0.66-1.25) mg/dL Est GFR (CKD-EPI)AfAm (>60 ml/min/1.73 sqM) Est GFR (CKD-EPI)NonAf (>60 ml/min/1.73 sqM) Glucose (74-99) mg/dL Calcium (8.4-10.2) mg/dL Phosphorus (2.5-4.5) mg/dL Magnesium (1.6-2.3) mg/dL Total Bilirubin (0.2-1.3) mg/dL AST (17-59) U/L ALT (4-49) U/L Alkaline Phosphatase (38-126) U/L Total Protein (6.3-8.2) g/dL Albumin (3.5-5.0) g/dL Amylase (30-110) U/L Lipase (23-300) U/L Urine Color Colorless Urine Appearance Clear (Clear) Urine pH 5.5 (5.0-8.0) Ur Specific [place] 1.043 H (1.001-1.035) Urine Protein Negative (Negative) Urine Glucose (UA) 4+ H (Negative) Urine Ketones Negative (Negative) Urine Blood Negative (Negative) Urine Nitrite Negative (Negative) Urine Bilirubin Negative (Negative) Urine Urobilinogen <2.0 (<2.0) mg/dL Ur Leukocyte Esterase Negative (Negative) Acetone, Qual (Negative) Influenza Type A (PCR) (Not Detectd) Influenza Type B (PCR) (Not Detectd) RSV (PCR) (Not Detectd) SARS-CoV-2 (PCR) (Not Detectd) - Radiology Data Radiology results: report reviewed, image reviewed Disposition Clinical Impression: Nausea and vomiting, Hypomagnesemia Disposition: HOME SELF-CARE Instructions (If sedation given, give patient instructions): Acute Nausea and Vomiting (ED) Additional Instructions: Return to the emergency department with any new, worsening, or concerning symptoms. You can take the Zofran up to every 8 hours as needed for nausea and vomiting. Slowly advance your diet as tolerated and remain well hydrated. Follow up with your primary care provider in 1-2 days. Prescriptions: Ondansetron Odt [Zofran Odt] 4 mg PO Q8HR PRN #20 tab PRN Reason: Nausea And Vomiting Is patient prescribed a controlled substance at d/c from ED?: No Referrals: Mark Pena MD [Primary Care Provider] - 1-2 days
[2023-09-17 08:18] LABS: Basophils % (A) 0 %; Eosinophils # (A) 0.1 k/uL (0-0.7); Eosinophils % (A) 1 %; HCT 44.2 % (39.0-53.0); HGB 14.9 gm/dL (13.0-17.5); Lymphocytes # (A) 0.4 k/uL (1.0-4.8); Lymphocytes % (A) 3 %; MCH 30.7 pg (25.0-35.0); MCHC 33.7 g/dL (31.0-37.0); Mean Platelet Volume 10.5; Monocytes # (A) 0.5 k/uL (0-1.0); Monocytes % (A) 5 %; Neutrophils # (A) 10.3 k/uL (1.3-7.7); Neutrophils % (A) 90 %; Platelet Count 196 k/uL (150-450); RBC 4.86 m/uL (4.30-5.90); WBC 11.4 k/uL (3.8-10.6)
[2023-09-17 08:28] LABS: ALT 33 U/L (4-49); AST 28 U/L (17-59); African American GFR (CKD) >90 (>60 ml/min/1.73 sqM); Albumin 4.3 g/dL (3.5-5.0); Alkaline Phosphatase 73 U/L (38-126); Amylase 51 U/L (30-110); Anion Gap 16 mmol/L; Blood Urea Nitrogen 26 mg/dL (9-20); Calcium 9.3 mg/dL (8.4-10.2); Carbon Dioxide 19 mmol/L (22-30); Chloride 106 mmol/L (98-107); Glucose 222 mg/dL (74-99); Lipase 75 U/L (23-300); Magnesium 1.5 mg/dL (1.6-2.3); Non-African American GFR(CKD) >90 (>60 ml/min/1.73 sqM); Phosphorus 3.2 mg/dL (2.5-4.5); Sodium 141 mmol/L (137-145); Total Bilirubin 0.5 mg/dL (0.2-1.3); Total Protein 7.1 g/dL (6.3-8.2)
[2023-09-17 08:30] LABS: Appearance,Urine Clear (Clear); Bilirubin,Urine Negative (Negative); Blood,Urine Negative (Negative); Color,Urine Colorless; Glucose,Urine (UA) 4+ (Negative); Ketones,Urine Negative (Negative); Leukocyte Esterase,Urine Negative (Negative); Nitrite,Urine Negative (Negative); PH, Urine 5.5 (5.0-8.0); Protein,Urine Negative (Negative); Specific Gravity,Urine 1.043 (1.001-1.035); Urobilinogen,Urine <2.0 mg/dL (<2.0)
[2023-09-17] MEDS: MAGNESIUM SULFATE-D5W PMX 1 GM in DEXTROSE/WATER 1 100ML.BAG IVPB SCH ×2 (09:03→10:23)
--- NOTE | 2023-09-17 09:20 | US ---
EXAMINATION TYPE: US gallbladder DATE OF EXAM: 09/17/2023 COMPARISON: CT abdomen February 08, 2023 CLINICAL INDICATION: Male, 57 years old with history of Epigastric pain, N/V; epigastric pain N/V TECHNIQUE: Multiple sonographic images of the right upper quadrant are obtained. FINDINGS: EXAM MEASUREMENTS: Liver Length: 19.2 cm Gallbladder Wall: 1.5 mm CBD: 5.5 mm Right Kidney: 11.4x5.1x5.6 cm CERTIFIED PHARMACY TECH NOTES: Pancreas: Tail obscured by overlying bowel gas Liver: increased size and echogenicity Gallbladder: wnl Evidence for sonographic Frey's sign: No CBD: wnl Right Kidney: wnl Exam slightly limited by bowel and body habitus IMPRESSION: 1. Hepatomegaly and hepatic steatosis. 2. No evidence of cholelithiasis or cholecystitis. 3. No biliary ductal dilatation is seen.
[2023-09-17] MEDS ORDERED: DEXAMETHASONE SOD PHOSPHATE 10 MG/ML 1 ML VIAL IVP STA (09:35)
[2023-09-17] MEDS ORDERED: ONDANSETRON 4 MG ODT STARTER PACK 2 TAB BTL PO STA (10:32)
[2023-09-17 11:25] VITALS: BP 135/70; PULSE 110; RESP 19; TEMP 98.6
== END 2023-09-17 11:25 | disposition home or self-care (01) ==
LOC: EC 07:13
DX: R11.2 Nausea with vomiting, unspecified (principal); E83.42 Hypomagnesemia; E11.9 Type 2 diabetes mellitus without complications; E78.5 Hyperlipidemia, unspecified; K21.9 Gastro-esophageal reflux disease without esophagitis; Z79.84 Long term (current) use of oral hypoglycemic drugs; Z79.899 Other long term (current) drug therapy; Z20.822 Contact with and (suspected) exposure to COVID-19
CPT/HCPCS: 36415; 80053; 82150; 82009; 83690; 83735; 84100; 85025; 81003; 87636; 76705; 99284; 96365; 96366; 96375 ×4; 96376; 96361; J1100; J2405; J3490; J3475; J1885; S0119

== ENCOUNTER → 2023-11-04 | Outpatient (CLI) | payer OTHER ==
[2023-11-04 15:22] LABS: ALT 30 U/L (10-49); AST 25 U/L (14-35); Albumin 4.5 g/dL (3.8-4.9); Albumin/Globulin Ratio 1.96 Ratio (1.60-3.17); Alkaline Phosphatase 65 U/L (41-126); Blood Urea Nitrogen 19.1 mg/dL (9.0-27.0); Calcium 10.1 mg/dL (8.7-10.3); Carbon Dioxide 22.7 mmol/L (21.6-31.8); Chloride 104 mmol/L (96-109); Globulin 2.3 g/dL (1.6-3.3); Glucose 130 mg/dL (70-110); Potassium 4.6 mmol/L (3.5-5.5); Sodium 139 mmol/L (135-145); Total Bilirubin 0.3 mg/dL (0.3-1.2); Total Protein 6.8 g/dL (6.2-8.2)
[2023-11-05 00:15] LABS: Microalbumin Creatinine Ratio <34 mg/g Cr (0-30); Urine Creatinine 35.4 mg/dL (39.0-259.0)
== END | disposition home or self-care (01) ==
LOC: LABWHC1 11:41
PROVIDERS: ATTEND Family Medicine
DX: E11.69 Type 2 diabetes mellitus with other specified complication (principal)
CPT/HCPCS: 36415; 80053; 82043; 82570

== ENCOUNTER → 2024-08-18 | Outpatient (CLI) | payer OTHER ==
[2024-08-18 15:04] LABS: ALT 31 U/L (10-49); AST 24 U/L (14-35); Chol/HDL Ratio 4.29 Ratio; LDL Cholesterol,Calculated 88.9 mg/dL (0.0-131.0)
== END | disposition home or self-care (01) ==
LOC: LABWHC1 09:19
PROVIDERS: ATTEND Internal Medicine
DX: E78.2 Mixed hyperlipidemia (principal)
CPT/HCPCS: 36415; 80061; 84450; 84460

== ENCOUNTER 2025-03-09 14:04 | Emergency (ER) | payer OTHER ==
[2025-03-09 14:09] VITALS: TEMP 98.5
[2025-03-09] MEDS: SODIUM CHLORIDE 0.9% 1,000 ML IV ONE (14:49)
[2025-03-09 14:50] VITALS: BP 122/66; PULSE 103; RESP 16
[2025-03-09 14:56] LABS: Basophils # (A) 0.04 10*3/uL (0.00-0.10); Basophils % (A) 0.5 %; Eosinophils # (A) 0.04 10*3/uL (0.04-0.35); Eosinophils % (A) 0.5 %; HCT 38.3 % (39.6-50.0); HGB 13.3 g/dL (13.0-17.0); Lymphocytes # (A) 1.27 10*3/uL (0.90-5.00); Lymphocytes % (A) 14.9 %; MCH 31.1 pg (27.0-32.0); MCHC 34.7 g/dL (32.0-37.0); MCV 89.5 fL (80.0-97.0); Mean Platelet Volume 11.4 fL (9.5-12.2); Monocytes # (A) 0.64 10*3/uL (0.20-1.00); Monocytes % (A) 7.5 %; Neutrophils # (A) 6.54 10*3/uL (1.80-7.70); Neutrophils % (A) 76.4 %; Platelet Count 209 10*3/uL (140-440); RBC 4.28 10*6/uL (4.40-5.60); RDW 13.1 % (11.5-14.5); WBC 8.55 10*3/uL (4.50-10.00)
[2025-03-09 15:14] LABS: ALT 31 U/L (4-49); AST 27 U/L (17-59); African American GFR (CKD) >90 (>60 ml/min/1.73 sqM); Alkaline Phosphatase 72 U/L (38-126); Anion Gap 16 mmol/L; Blood Urea Nitrogen 26 mg/dL (9-20); Calcium 10.2 mg/dL (8.4-10.2); Carbon Dioxide 16 mmol/L (22-30); Chloride 104 mmol/L (98-107); Glucose 105 mg/dL (74-99); Non-African American GFR(CKD) 79 (>60 ml/min/1.73 sqM); Potassium 3.8 mmol/L (3.5-5.1); Sodium 136 mmol/L (137-145); Total Bilirubin 0.4 mg/dL (0.2-1.3); Total Protein 6.2 g/dL (6.3-8.2)
--- NOTE | 2025-03-09 15:22 | ED ---
General Adult HPI - General Source: patient, family, RN notes reviewed, old records reviewed Mode of arrival: EMS Limitations: no limitations <Guerita Benedict - Last Filed: 03/09/25 16:02> <Robert Hinds - Last Filed: 03/15/25 15:44> - General Chief complaint: Dizziness Stated complaint: Heat Exhausted -[facility] Time Seen by Provider: 03/09/25 15:05 - History of Present Illness Initial comments: 59-year-old male presents with complaints of dizziness and dehydration. 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 Reports there is no air conditioning where he works and with the weather conditions outside he was feeling and even when he drank water felt like he was "trying to catch up "with the amount of thirst he had. Reports he eventually got to the point where he had stopped sweating and started feeling even more dizzy and decided to come to the ER for further evaluation. States he normally drinks a decent amount of water every day. Denies fainting, loss of consciousness, shortness of breath, palpitations, chest pain, headache. (Guerita Benedict) - Related Data Home Medications Medication Instructions Recorded Confirmed Fenofibrate 160 mg PO HS 06/17/14 08/27/19 Pioglitazone [Actos] 30 mg PO DAILY 06/17/14 08/27/19 Multivitamin [Men's Multi-Vitamin] 1 tab PO DAILY 06/18/14 08/27/19 Omeprazole 20 mg PO BID 06/18/14 08/27/19 Atorvastatin [Lipitor] 40 mg PO DAILY 02/25/17 08/27/19 Tamsulosin [Flomax] 0.8 mg PO HS 02/25/17 08/27/19 sitaGLIPtin PHOS/metFORMIN HCL 1 tab PO BID 02/25/17 08/27/19 [Janumet 50-1,000 mg Tablet] Previous Rx's Medication Instructions Recorded Albuterol Inhaler [Ventolin Hfa 2 puff INHALATION RT-Q6H PRN #1 08/28/19 Inhaler] inhaler cefuroxime axetiL [Ceftin] 500 mg PO BID #10 tab 08/28/19 predniSONE 10 mg PO DIRECTED #30 tab 08/28/19 Ondansetron Odt [Zofran Odt] 4 mg PO Q8HR PRN #20 tab 09/17/23 Allergies Allergy/AdvReac Type Severity Reaction Status Date / Time No Known Allergies Allergy Verified 09/17/23 07:26 Review of Systems ROS Other: All systems not noted in ROS Statement are negative. <Guerita Benedict - Last Filed: 03/09/25 16:02> ROS Other: All systems not noted in ROS Statement are negative. <Robert Hinds - Last Filed: 03/15/25 15:44> ROS Statement: Those systems with pertinent positive or pertinent negative responses have been documented in the HPI. Past Medical History Past Medical History: Diabetes Mellitus, GERD/Reflux, Hyperlipidemia Additional Past Medical History / Comment(s): cpap at night History of Any Multi-Drug Resistant Organisms: None Reported Past Surgical History: Heart Catheterization Past Anesthesia/Blood Transfusion Reactions: Family History of Problems w/ Anesthesia Additional Past Anesthesia/Blood Transfusion Reaction / Comment(s): mom had some problems coming out of anes. Past Psychological History: No Psychological Hx Reported Smoking Status: Never smoker Past Alcohol Use History: Occasional Past Drug Use History: None Reported - Past Family History Mother Family Medical History: Coronary Artery Disease (CAD) Father Family Medical History: Coronary Artery Disease (CAD) <Guerita Benedict - Last Filed: 03/09/25 16:02> General Exam Limitations: no limitations <Guerita Benedict - Last Filed: 03/09/25 16:02> - General Exam Comments Initial Comments: GENERAL: In no apparent distress at the time of examination. Pleasant and cooperative. HEENT: Head is atraumatic, normocephalic. Pupils are equal, round, and reactive to light. Sclerae anicteric. Conjunctivae are clear. Mucus membranes of the mouth are moist. Neck is supple. RESPIRATORY: Clear to auscultation. No wheezes, rales, or rhonchi. No use of accessory muscles. Patient maintaining oxygen saturation greater than 92%. No chest wall tenderness is noted on palpation or with deep breathing. CARDIOVASCULAR: Regular rate and rhythm. S1 and S2 noted. No systolic or diastolic murmur auscultated. No JVD noted. No S3 or S4 noted. GASTROINTESTINAL: No distention noted. Abdomen soft and round. Normal active bowel sounds auscultated x 4 quadrants. No pain or tenderness noted upon palpat ion. INTEGUMENTARY: No cyanosis. No jaundice. No rashes noted. No cellulitis noted. EXTREMITIES: 2+ peripheral pulses. No evidence of peripheral edema. No calf tenderness noted. PSYCHIATRIC: Awake, alert, and oriented X 3. Appropriate affect. Intact judgement and insight. (Guerita Benedict) Course Vital Signs 03/09/25 03/09/25 03/09/25 14:07 14:09 14:25 Temperature 98.5 F Pulse Rate 95 92 76 Respiratory 14 14 20 Rate Blood Pressure 130/72 130/77 O2 Sat by Pulse 96 97 95 Oximetry 03/09/25 14:49 Temperature Pulse Rate 103 H Respiratory 16 Rate Blood Pressure 122/66 O2 Sat by Pulse 97 Oximetry Medical Decision Making - Lab Data Result diagrams: 03/09/25 14:16 03/09/25 14:16 <Guerita Benedict - Last Filed: 03/09/25 16:02> - Lab Data Result diagrams: 03/09/25 14:16 03/09/25 14:16 <Robert Hinds - Last Filed: 03/15/25 15:44> - Medical Decision Making Was pt. sent in by a medical professional or institution ([facility], [facility], urgent care, hospital, or detention...) When possible be specific @ -No Did you speak to anyone other than the patient for history (EMS, parent, family, police, friend...)? What history was obtained from this source @ -No Did you review nursing and triage notes (agree or disagree)? Why? @ -I reviewed and agree with nursing and triage notes Were old charts reviewed (outside hosp., previous admission, EMS record, old EKG, old radiological studies, urgent care reports/EKG's, detention records)? Report findings @ -No old charts were reviewed Differential Diagnosis? @ -Differential Dizziness: Dehydration, benign paroxysmal positional Vertigo, Meniere's disease, otitis media, acoustic neuroma, vertebrobasilar insufficiency, cerebellar stroke, encephalitis, hypovolemic, arrhythmia, coronary artery syndrome, anemia, this is not meant to be an all-inclusive list EKG interpreted by me (3pts min.). @ -As above X-rays interpreted by me (1pt min.). @ -None done CT interpreted by me (1pt min.). @ -None done U/S interpreted by me (1pt. min.). @ -None done What testing was considered but not performed or refused? (CT, X-rays, U/S, labs)? Why? @ -None What meds were considered but not given or refused? Why? @ -None Did you discuss the management of the patient with other professionals (professionals i.e. , PA, [facility] [employer], lab, RT, psych nurse, licensed master social worker, campus ambassador, teacher, consular officer, manager case management)? Give summary @ -No Was smoking cessation discussed for >3mins.? @ -No Was critical care preformed (if so, how long)? @ -No Were there social determinants of health that impacted care today? How? (Homelessness, low income, unemployed, alcoholism, drug addiction, transportation, low edu. Level, literacy, decrease access to med. care, assisted, rehab)? @ -No Was there de-escalation of care discussed even if they declined (Discuss DNR or withdrawal of care, Hospice)? DNR status @ -No What co-morbidities impacted this encounter? (DM, HTN, Smoking, COPD, CAD, Cancer, CVA, ARF, Chemo, Hep., AIDS, mental health diagnosis, sleep apnea, morbid obesity)? @ -None Was patient admitted / discharged? Hospital course, mention meds given and route, prescriptions, significant lab abnormalities, going to OR and other pertinent info. @ -Discharged, this is a 59-year-old male who is presenting with complaints of dizziness and dehydration. Reports that he was at work earlier today where he was very hot without air conditioning and as the day progressed he began to become more more dizzy despite drinking water. At 1 point he stopped sweating, and thought things had gotten much worse so decided come to the ER for further evaluation. En route to the ER he received 1 L bolus of NS in the ambulance, received another bolus of NS here. Patient was feel much better after receiving the fluid bolus, lab work came back within normal limits. Patient was feeling much better at time of discharge. Patient is vies follow-up with his PCP in 1 to 2 days peer Undiagnosed new problem with uncertain prognosis? @ -No Drug Therapy requiring intensive monitoring for toxicity (Heparin, Nitro, Insulin, Cardizem)? @ -No Were any procedures done? @ -No Diagnosis/symptom? @ -Dehydration, heat exhaustion Acute, or Chronic, or Acute on Chronic? @ -Acute Uncomplicated (without systemic symptoms) or Complicated (systemic symptoms)? @ -Default Side effects of treatment? @ -No Exacerbation, Progression, or Severe Exacerbation? @ -No Poses a threat to life or bodily function? How? (Chest pain, [place], [place], pneumonia, PE, COPD, DKA, ARF, appy, cholecystitis, CVA, Diverticulitis, Homicidal, Suicidal, threat to staff... and all critical care pts) @ -No (Guerita Benedict) I personally saw the patient and performed the critical portion of the service. I discussed the patient care with the Dr. Benedict. I directed management, care planning and final disposition of the patient. This includes, but not limited to, review of all lab work, radiological studies, EKG's, consultations, vital signs, and nursing notes. EKG interpreted by me (3pts min.) @As above X-Rays interpreted by me (1 pt min.) @None CT interpreted by me ( 1pt min.) @None U/S interpreted by me (1 pt min.) @None Critical care time of 0 minutes excluding separately billable procedures was spent in conjunction with critical care activities provided by the Resident and Attending simultaneously. I was present during no procedures for all critical portions of the procedure and as immediately available to furnish service during the entire procedure. (Robert Hinds) - Lab Data Lab Results 03/09/25 03/09/25 Range/Units 14:16 14:16 WBC 8.55 (4.50-10.00) 10*3/uL RBC 4.28 L (4.40-5.60) 10*6/uL Hgb 13.3 (13.0-17.0) g/dL Hct 38.3 L (39.6-50.0) % MCV 89.5 (80.0-97.0) fL MCH 31.1 (27.0-32.0) pg MCHC 34.7 (32.0-37.0) g/dL Plt Count 209 (140-440) 10*3/uL MPV 11.4 (9.5-12.2) fL Immature Gran % (Auto) 0.2 % Neutrophils % 76.4 % Lymphocytes % 14.9 % Monocytes % 7.5 % Eosinophils % 0.5 % Basophils % 0.5 % Immature Gran # 0.02 (0.00-0.04) 10*3/uL Neutrophils # 6.54 (1.80-7.70) 10*3/uL Lymphocytes # 1.27 (0.90-5.00) 10*3/uL Monocytes # 0.64 (0.20-1.00) 10*3/uL Eosinophils # 0.04 (0.04-0.35) 10*3/uL Basophils # 0.04 (0.00-0.10) 10*3/uL Sodium 136 L (137-145) mmol/L Potassium 3.8 (3.5-5.1) mmol/L Chloride 104 (98-107) mmol/L Carbon Dioxide 16 L (22-30) mmol/L Anion Gap 16 mmol/L BUN 26 H (9-20) mg/dL Creatinine 1.02 (0.66-1.25) mg/dL Est GFR (CKD-EPI)AfAm >90 (>60 ml/min/1.73 sqM) Est GFR (CKD-EPI)NonAf 79 (>60 ml/min/1.73 sqM) Glucose 105 H (74-99) mg/dL Calcium 10.2 (8.4-10.2) mg/dL Total Bilirubin 0.4 (0.2-1.3) mg/dL AST 27 (17-59) U/L ALT 31 (4-49) U/L Alkaline Phosphatase 72 (38-126) U/L Total Protein 6.2 L (6.3-8.2) g/dL Albumin 4.0 (3.5-5.0) g/dL Disposition Is patient prescribed a controlled substance at d/c from ED?: No <Guerita Benedict - Last Filed: 03/09/25 16:02> <Robert Hinds - Last Filed: 03/15/25 15:44> Clinical Impression: Dehydration, Heat exhaustion Disposition: HOME SELF-CARE Condition: Fair Instructions (If sedation given, give patient instructions): Dehydration (ED), Dizziness (ED) Referrals: Aki Barrett Jr, DO [Primary Care Provider] - 1-2 days
== END 2025-03-09 16:02 | disposition home or self-care (01) ==
LOC: EC 14:04
DX: T67.5XXA Heat exhaustion, unspecified, initial encounter (principal); E86.0 Dehydration
CPT/HCPCS: 36415; 80053; 85025; 93005; 96360; 99284